=== PATIENT | male | born 1995 | race African-American/Black ===

== ENCOUNTER 2016-06-26 21:15 | Emergency (ER) | payer SELFPAY ==
[~2016-06-26] VITALS: Ht 188 cm; Wt 65.0 kg
[~2016-06-26 21:15] MED LIST: AMOX875T PO
[2016-06-26 21:20] VITALS: BP 163/103; PULSE 118; RESP 22; TEMP 99.1; O2SAT 100
[2016-06-26] MEDS ORDERED: SODIUM CHLOR 0.9% 1000 ML INJ 1,000 ML IV ONE (21:24)
[2016-06-26] MEDS ORDERED: SODIUM CHLORIDE 0.9% FLUSH 10 ML FLUSH IVF PRN (21:30)
[2016-06-26 21:32] VITALS: O2SAT 100
--- NOTE | 2016-06-26 21:32 | PD ---
HPI Chief Complaint: Abdominal Pain Time Seen by Provider: 21:24 Travel History International Travel<30 days: No Contact w/Intl Traveler<30days: No Traveled to known affect area: No History of Present Illness HPI This is a 21-year-old male with a previous history of seizure disorder, who presents via EMS after he reportedly smoked "flock". The patient reports that he smoked it prior to arrival. Patient also reports diffuse abdominal pain. Patient states the pain has been there for one week. He denies any fevers, chills. He denies any nausea vomiting diarrhea. The patient is a very poor historian and is difficult to get a clear history from him. PFSH Past Medical History Asthma: Yes Diminished Hearing: No Respiratory: Yes Immunizations Current: Yes Seizures: Yes Tetanus Vaccination: Unknown Influenza Vaccination: No Past Surgical History Surgical History: No Previous Surgery Social History Alcohol Use: Yes (socially) Tobacco Use: Yes (2 PPD) Substance Use: Yes (MULTIPLE ED VISITS FOR SUBSTANCE ABUSE RELATED ISSUES admits [place]) Allergies-Medications (Allergen,Severity, Reaction): Coded Allergies: No Known Allergies (Verified , 02/10/16) Reported Meds & Prescriptions Reported Meds & Active Scripts Active No Active Prescriptions or Reported Medications Review of Systems ROS Limitations: Uncooperative Except as stated in HPI: all other systems reviewed are Neg Eyes: No: Diploplia, Blurred Vision HENT: No: Headaches, Lightheadedness Cardiovascular: No: Chest Pain or Discomfort, Palpitations Respiratory: No: Cough, Shortness of Breath Gastrointestinal: Positive: Abdominal Pain ("all over"), No: Nausea, Vomiting , Hematemesis, Hematochezia Genitourinary: No: Incontinence Musculoskeletal: No: Weakness, Pain Skin: No Rash, No Lesions Neurologic: Positive: Other (poor historian.), No: Weakness, Headache Physical Exam Narrative GENERAL: Well-nourished, well-developed patient, in no acute respiratory distress. SKIN: Focused skin assessment warm/dry. HEAD: Normocephalic/atraumatic. EYES: No scleral icterus. No injection or drainage. ENT: Dry mucous membranes. No lesions appreciated. NECK: Supple, trachea midline. CARDIOVASCULAR: Heart rate in the low 100s. 109 at the time my examination. No murmurs, gallops, rubs. RESPIRATORY: Breath sounds equal bilaterally. No accessory muscle use. GASTROINTESTINAL: Abdomen soft, non-tender, nondistended. Patient reports abdominal pain however none elicited on exam. MUSCULOSKELETAL: No cyanosis, or edema. NEUROLOGICAL: Awake and uncooperative. Cranial nerves II through XII intact. Motor and sensory grossly within normal limits. Five out of 5 muscle strength in all muscle groups. Normal speech. Data Data Last Documented VS Vital Signs Date Time Temp Pulse Resp B/P Pulse Ox O2 Delivery O2 Flow Rate FiO2 06/26/16 23:00 97 18 145/75 100 Room Air 06/26/16 21:20 99.1 Orders Electrocardiogram (06/26/16 21:24) Complete Blood Count With Diff (06/26/16 21:24) Comprehensive Metabolic Panel (06/26/16 21:24) Chest, Single Ap (06/26/16 21:24) Iv Access Insert/Monitor (06/26/16 21:24) Ecg Monitoring (06/26/16 21:24) Oximetry (06/26/16 21:24) Sodium Chloride 0.9% Flush (Ns Flush) (06/26/16 21:30) Sodium Chlor 0.9% 1000 Ml Inj (Ns 1000 M (06/26/16 21:24) Drug Screen, Random Urine (06/26/16 21:24) Alcohol (Ethanol) (06/26/16 21:24) Lipase (06/26/16 21:24) Potassium Chloride Powder (Kcl Powder) (06/26/16 23:45) Labs Laboratory Tests Test 06/26/16 21:25 White Blood Count 8.8 TH/MM3 Red Blood Count 4.19 MIL/MM3 Hemoglobin 12.2 GM/DL Hematocrit 37.2 % Mean Corpuscular Volume 88.7 FL Mean Corpuscular Hemoglobin 29.0 PG Mean Corpuscular Hemoglobin 32.7 % Concent Red Cell Distribution Width 14.1 % Platelet Count 170 TH/MM3 Mean Platelet Volume 9.9 FL Neutrophils (%) (Auto) 52.7 % Lymphocytes (%) (Auto) 29.8 % Monocytes (%) (Auto) 13.9 % Eosinophils (%) (Auto) 2.8 % Basophils (%) (Auto) 0.8 % Neutrophils # (Auto) 4.6 TH/MM3 Lymphocytes # (Auto) 2.6 TH/MM3 Monocytes # (Auto) 1.2 TH/MM3 Eosinophils # (Auto) 0.2 TH/MM3 Basophils # (Auto) 0.1 TH/MM3 CBC Comment DIFF FINAL Differential Comment Sodium Level 139 MEQ/L Potassium Level 3.1 MEQ/L Chloride Level 104 MEQ/L Carbon Dioxide Level 23.5 MEQ/L Anion Gap 12 MEQ/L Blood Urea Nitrogen 8 MG/DL Creatinine 1.13 MG/DL Estimat Glomerular Filtration 98 ML/MIN Rate Random Glucose 100 MG/DL Calcium Level 8.9 MG/DL Total Bilirubin 0.9 MG/DL Aspartate Amino Transf 13 U/L (AST/SGOT) Alanine Aminotransferase 8 U/L (ALT/SGPT) Alkaline Phosphatase 70 U/L Total Protein 7.5 GM/DL Albumin 3.9 GM/DL Lipase 52 U/L Ethyl Alcohol Level LESS THAN 3 MG/DL MDM Medical Decision Making Medical Screen Exam Complete: Yes Emergency Medical Condition: Yes Differential Diagnosis Polysubstance abuse Pancreatitis versus gastroenteritis versus peptic ulcer disease Narrative Course 21-year-old male who has a history of polysubstance abuse, presents today via EMS after he ingested "lock". The patient apparently was also complaining of epigastric pain. The patient has a soft nontender toxic abdominal exam. Potassium level was 3.1. He's been given 20 mEq of by mouth potassium replacement. The patient's not been able to produce urine. He is refusing catheterization at this point. He has been given 1 L of IVD fluid. He's been observed and is resting comfortably. We will continue to observe him until he is appropriately sober and awake. Diagnosis Primary Impression: Substance use disorder Additional Impressions: Chronic abdominal pain mild hypokalemia Additional Instructions: Stop using drugs Scripts No Active Prescriptions or Reported Meds Disposition: 01 DISCHARGE HOME Condition: Stable Ramón Rush MD June 26, 2016 21:32
[2016-06-26 21:40] LABS: AUTOMATED NEUTROPHIL # 4.6 TH/MM3 (1.8-7.7); BASOPHIL # 0.1 TH/MM3 (0-0.2); BASOPHIL % 0.8 % (0.0-2.0); EOSINOPHIL # 0.2 TH/MM3 (0-0.4); EOSINOPHIL % 2.8 % (0.0-4.0); HEMATOCRIT 37.2 % (39.0-51.0); HEMO FLAGS DIFF FINAL; LYMPH % 29.8 % (9.0-44.0); LYMPHOCYTE # 2.6 TH/MM3 (1.0-4.8); MEAN CELL VOLUME 88.7 FL (80.0-100.0); MEAN CORPUSCULAR HGB CONC 32.7 % (32.0-36.0); MONO % 13.9 % (0.0-8.0); NEUT % 52.7 % (16.0-70.0); PLATELET COUNT 170 TH/MM3 (150-450); RED BLOOD COUNT 4.19 MIL/MM3 (4.50-5.90); RED CELL DISTRIBUTION WIDTH 14.1 % (11.6-17.2); WHITE BLOOD COUNT 8.8 TH/MM3 (4.0-11.0)
[2016-06-26 21:57] LABS: ANION GAP 12 MEQ/L (5-15); AST (GOT) 13 U/L (15-37); BICARBONATE 23.5 MEQ/L (21.0-32.0); BLOOD UREA NITROGEN 8 MG/DL (7-18); CHLORIDE 104 MEQ/L (98-107); GLOMERULAR FILTRATION RATE 98 ML/MIN (>89); POTASSIUM 3.1 MEQ/L (3.5-5.1); SODIUM (NA) 139 MEQ/L (136-145)
[2016-06-26 22:00] VITALS: BP 161/99; PULSE 110; RESP 16; O2SAT 100
[2016-06-26 22:00] LABS: ALKALINE PHOSPHATASE 70 U/L (45-117); ALT (GPT) 8 U/L (12-78); TOTAL BILIRUBIN ADULT 0.9 MG/DL (0.2-1.0)
--- NOTE | 2016-06-26 22:20 | RADRPT ---
EXAM DATE/TIME: 06/26/2016 21:49 [facility] COMPARISON: CHEST SINGLE AP, February 10, 2016, 5:20. INDICATIONS : Chest pain. MEDICAL HISTORY : None. SURGICAL HISTORY : None. ENCOUNTER: Initial ACUITY: 1 day PAIN SCORE: 10/10 LOCATION: Bilateral chest FINDINGS: A single view of the chest demonstrates the lungs to be symmetrically aerated without evidence of mas s, infiltrate or effusion. The cardiomediastinal contours are unremarkable. Osseous structures are intact. CONCLUSION: No acute disease. Travis Huitron MD on June 26, 2016 at 22:16 Board Certified Radiologist. This report was verified electronically.
[2016-06-26 23:00] VITALS: BP 145/75; PULSE 97; RESP 18; O2SAT 100
[2016-06-26] MEDS ORDERED: POTASSIUM CHLORIDE 20 MEQ PWD PACKET PO ONE (23:45)
[2016-06-27 01:00] VITALS: BP 127/73; PULSE 79; RESP 16; O2SAT 100
[2016-06-27 03:00] VITALS: BP 135/98; PULSE 78; RESP 16; O2SAT 100
[2016-06-27 06:00] VITALS: BP 133/96; PULSE 73; RESP 16; O2SAT 100
--- NOTE | 2016-06-27 07:38 | EKG ---
Date Performed: 06/26/2016 Time Performed: 21:33:05 PTAGE: 21 years EKG: SINUS TACHYCARDIA NONSPECIFIC T-WAVE ABNORMALITY ABNORMAL RHYTHM ECG COMPARED TO PRIOR ELEC TROCARDIOGRAM, Rate has increased. PREVIOUS TRACING : 08/11/2015 13.49 DOCTOR: Jeff Lockwood Interpretating Date/Time 06/27/2016 07:37:47
== END 2016-06-27 10:24 | disposition home or self-care (01) ==
LOC: NEPE 21:15
DX: R10.9 Unspecified abdominal pain (principal); G89.29 Other chronic pain; E87.6 Hypokalemia; F15.90 Other stimulant use, unspecified, uncomplicated; R94.31 Abnormal electrocardiogram [ECG] [EKG]; G40.909 Epilepsy, unspecified, not intractable, without status epilepticus; F17.210 Nicotine dependence, cigarettes, uncomplicated; F12.90 Cannabis use, unspecified, uncomplicated
CPT/HCPCS: 71010; 80053; 80307; 83690; 85025; 93005; 99284; J7030

== ENCOUNTER 2016-08-03 01:12 | Emergency (ER) | payer SELFPAY ==
[~2016-08-03] VITALS: Ht 188 cm; Wt 70.0 kg
[2016-08-03 01:30] VITALS: BP 139/105; PULSE 80; RESP 18; TEMP 98.6; O2SAT 100
[2016-08-03 02:09] LABS: AUTOMATED NEUTROPHIL # 5.3 TH/MM3 (1.8-7.7); BASOPHIL % 0.3 % (0.0-2.0); EOSINOPHIL # 0.1 TH/MM3 (0-0.4); EOSINOPHIL % 1.1 % (0.0-4.0); HEMATOCRIT 40.1 % (39.0-51.0); HEMO FLAGS DIFF FINAL; LYMPH % 25.9 % (9.0-44.0); LYMPHOCYTE # 2.2 TH/MM3 (1.0-4.8); MEAN CELL VOLUME 88.3 FL (80.0-100.0); MEAN CORPUSCULAR HEMOGLOBIN 29.9 PG (27.0-34.0); MEAN CORPUSCULAR HGB CONC 33.8 % (32.0-36.0); MONO % 9.7 % (0.0-8.0); PLATELET COUNT 187 TH/MM3 (150-450); RED BLOOD COUNT 4.54 MIL/MM3 (4.50-5.90); WHITE BLOOD COUNT 8.4 TH/MM3 (4.0-11.0)
[2016-08-03 02:35] LABS: ALKALINE PHOSPHATASE 72 U/L (45-117); TOTAL BILIRUBIN ADULT 0.4 MG/DL (0.2-1.0)
[2016-08-03 02:38] LABS: ALT (GPT) 11 U/L (12-78); ANION GAP 7 MEQ/L (5-15); AST (GOT) 14 U/L (15-37); BICARBONATE 23.8 MEQ/L (21.0-32.0); BLOOD UREA NITROGEN 11 MG/DL (7-18); CHLORIDE 109 MEQ/L (98-107); GLOMERULAR FILTRATION RATE 135 ML/MIN (>89); SODIUM (NA) 140 MEQ/L (136-145)
--- NOTE | 2016-08-03 03:40 | PD ---
HPI Chief Complaint: Abdominal Pain Time Seen by Provider: 01:48 Travel History International Travel<30 days: No Contact w/Intl Traveler<30days: No Traveled to known affect area: No History of Present Illness HPI 21-year-old male presents to the emergency department for complaint of one day of nausea and one hour or so of worsening abdominal pain. Pain is diffuse. Patient notes subjective fever; denies chills. Patient reports a few episodes of vomiting but denies hematemesis or coffee-ground emesis. Patient has had for 5 episodes of diarrhea. Patient denies any injury. Patient states he's had this pain before. Patient does not report any dietary indiscretion, well water ingestion, or foreign travel. No report of others with known similar symptoms. Patient rates his pain as 10 over 10 in intensity. Patient denies any dysuria frequency urgency hematuria or flank pain. Patient denies any melena hematochezia. Patient's had no anorexia. PFSH Past Medical History Narrative Medical Asthma chronic pain syndrome substance use; nursing notes reviewed Asthma: Yes Diminished Hearing: No Respiratory: Yes Immunizations Current: Yes Seizures: Yes Tetanus Vaccination: Unknown Influenza Vaccination: No Past Surgical History Surgical History: No Previous Surgery Social History Alcohol Use: Yes (socially) Tobacco Use: Yes (2 PPD) Substance Use: Yes (MULTIPLE ED VISITS FOR SUBSTANCE ABUSE RELATED ISSUES admits [place]) Allergies-Medications (Allergen,Severity, Reaction): Coded Allergies: No Known Allergies (Verified , 02/10/16) Reported Meds & Prescriptions Reported Meds & Active Scripts Active No Active Prescriptions or Reported Medications Review of Systems Except as stated in HPI: all other systems reviewed are Neg General / Constitutional: Positive: Fever (subjective), No: Chills HENT: No: Congestion Cardiovascular: No: Chest Pain or Discomfort Respiratory: No: Shortness of Breath Gastrointestinal: Positive: Nausea, Vomiting, Diarrhea, Abdominal Pain, No: Hematemesis, Hematochezia, Loss of Appetite Genitourinary: No: Urgency, Dysuria Musculoskeletal: No: Myalgias, Arthralgias Skin: No Rash Neurologic: No: Weakness Psychiatric: No: Anxiety Hematologic/Lymphatic: No: Easy Bruising Physical Exam Narrative GENERAL: Well-developed well-nourished male in no acute distress no respiratory distress SKIN: Warm and dry. HEAD: Normocephalic. EYES: No scleral icterus. No injection or drainage. NECK: Supple, trachea midline. No JVD or lymphadenopathy. CARDIOVASCULAR: Regular rate and rhythm without murmurs, gallops, or rubs. RESPIRATORY: Breath sounds equal bilaterally. No accessory muscle use. GASTROINTESTINAL: Abdomen soft, non-tender, nondistended. No guarding no rebound no localized area of tenderness. Nondistended. Positive bowel sounds. MUSCULOSKELETAL: No cyanosis, or edema. BACK: Nontender without obvious deformity. No CVA tenderness. Data Data Last Documented VS Vital Signs Date Time Temp Pulse Resp B/P Pulse Ox O2 Delivery O2 Flow Rate FiO2 08/03/16 01:30 98.6 80 18 139/105 100 Orders Complete Blood Count With Diff (08/03/16 01:48) Comprehensive Metabolic Panel (08/03/16 01:48) Urinalysis - C+S If Indicated (08/03/16 01:48) Sodium Chlor 0.9% 1000 Ml Inj (Ns 1000 M (08/03/16 03:45) Lipase (08/03/16 03:42) Ondansetron Inj (Zofran Inj) (08/03/16 04:00) Ct Abd/Pel W Iv Contrast(Rout) (08/03/16 ) Ondansetron Inj (Zofran Inj) (08/03/16 03:58) Urine Culture (08/03/16 03:50) Gc And Chlamydia Pcr (08/03/16 04:17) Iohexol 350 Inj (Omnipaque 350 Inj) (08/03/16 04:25) Morphine Inj (Morphine Inj) (08/03/16 05:00) Ondansetron Inj (Zofran Inj) (08/03/16 05:00) Labs Laboratory Tests Test 08/03/16 08/03/16 08/03/16 01:56 02:11 03:50 White Blood Count 8.4 TH/MM3 Red Blood Count 4.54 MIL/MM3 Hemoglobin 13.6 GM/DL Hematocrit 40.1 % Mean Corpuscular Volume 88.3 FL Mean Corpuscular Hemoglobin 29.9 PG Mean Corpuscular Hemoglobin 33.8 % Concent Red Cell Distribution Width 14.0 % Platelet Count 187 TH/MM3 Mean Platelet Volume 11.3 FL Neutrophils (%) (Auto) 63.0 % Lymphocytes (%) (Auto) 25.9 % Monocytes (%) (Auto) 9.7 % Eosinophils (%) (Auto) 1.1 % Basophils (%) (Auto) 0.3 % Neutrophils # (Auto) 5.3 TH/MM3 Lymphocytes # (Auto) 2.2 TH/MM3 Monocytes # (Auto) 0.8 TH/MM3 Eosinophils # (Auto) 0.1 TH/MM3 Basophils # (Auto) 0.0 TH/MM3 CBC Comment DIFF FINAL Differential Comment Sodium Level 140 MEQ/L Potassium Level 4.0 MEQ/L Chloride Level 109 MEQ/L Carbon Dioxide Level 23.8 MEQ/L Anion Gap 7 MEQ/L Blood Urea Nitrogen 11 MG/DL Creatinine 0.86 MG/DL Estimat Glomerular Filtration 135 ML/MIN Rate Random Glucose 90 MG/DL Calcium Level 9.0 MG/DL Total Bilirubin 0.4 MG/DL Aspartate Amino Transf 14 U/L (AST/SGOT) Alanine Aminotransferase 11 U/L (ALT/SGPT) Alkaline Phosphatase 72 U/L Total Protein 8.0 GM/DL Albumin 4.1 GM/DL Lipase 102 U/L Urine Color YELLOW Urine Turbidity CLEAR Urine pH 5.5 Urine Specific [place] 1.025 Urine Protein NEG mg/dL Urine Glucose (UA) NEG mg/dL Urine Ketones NEG mg/dL Urine Occult Blood SMALL Urine Nitrite NEG Urine Bilirubin NEG Urine Urobilinogen LESS THAN 2.0 MG/DL Urine Leukocyte Esterase MOD Urine RBC 3 /hpf Urine WBC 16 /hpf Urine Squamous Epithelial <1 /hpf Cells Urine Bacteria OCC /hpf Urine Mucus FEW /lpf Microscopic Urinalysis Comment CULTURE INDICATED MDM Medical Decision Making Medical Screen Exam Complete: Yes Emergency Medical Condition: Yes Medical Record Reviewed: Yes Interpretation(s) CBC & BMP Diagram 08/03/16 01:56 Vital Signs Date Time Temp Pulse Resp B/P Pulse Ox O2 Delivery O2 Flow Rate FiO2 08/03/16 01:30 98.6 80 18 139/105 100 lipase: 102, not elevated CT abd/pel: CONCLUSION: 1. Nonspecific appearance of the appendix. It is fluid filled and upper limits of normal in diameter. No periappendiceal inflammatory changes are seen. 2. Abdomen and pelvis CT otherwise within normal limits. Don Dennison MD on August 03, 2016 at 4:57 Board Certified Radiologist. This report was verified electronically. Differential Diagnosis Abdominal pain, viral syndrome, gastroenteritis, gastritis, pancreatitis, biliary colic, colitis, appendicitis; patient has a soft nontender abdomen to direct palpation without guarding or rebound vital signs are in normal range without tachycardia patient is afebrile and no anorexia. Reportedly patient has had vomiting and diarrhea. We'll obtain basic labs and administer bolus of IV fluids. Narrative Course IV access obtained specimens collected and sent for resulting Patient sleeping awakened to be reexamined unable to produce urine Patient given liter of normal saline CBC is automated differential values are normal range and complete metabolic panel shows no acute abnormality or elevations specifically LFTs are not elevated. Lipase pending complaining of lower abdominal pain At 5:13 AM patient continues complaining of worsening abdominal pain appears to be primarily in the lower abdomen this time slightly midline but also noted bilaterally. CT imaging per reading radiologist reported nonspecific appearance of appendix with no periappendiceal inflammatory changes but appendix being fluid-filled and upper limit of normal in size. Patient at this time nausea has settled down no further vomiting after Zofran patient had been ordered morphine sulfate 2 mg to be administered however has not complained of pain again therefore not administered on re-exam patient continues complaining of lower abdominal pain and rates pain as severe although pain on exam minimal to palpation. Vital signs are normal range. Total white cell count is normal and patient is afebrile. Suspect CT as exam most c/w gastroenteritis. Patient' s case discussed with on-call general surgery. Patient will be discharged with prescription for Phenergan for nausea vomiting Cipro for mild UTI versus urethritis findings on urinalysis. No report of penile discharge. Patient is stable for outpatient management on clear liquid diet to advance as tolerated. Patient is returned the emergency department for any increasing or worsening pain. Physician Communication Physician Communication call placed to gen surgery Diagnosis Primary Impression: Abdominal pain Qualified Code: R10.30 - Lower abdominal pain Additional Impressions: Acute gastroenteritis UTI (urinary tract infection) Qualified Code: N39.0 - Urinary tract infection without hematuria, site unspecified Referrals: [facility] as needed Primary Care Physician call for appointment Patient Instructions: General Instructions Additional Instructions: Follow clear liquid diet for next 12-24 hours advance diet as tolerated to bland /Chaim diet then regular diet avoiding fried and fatty foods Monitor temperature every 4 hours with thermometer take acetaminophen/Tylenol as often as every 4 hours as needed for fever 100.4F or greater May use ibuprofen/Advil/Motrin 600 mg as often as every 6 hours for pain or for fever 100.4 days Fahrenheit or greater Take medication as prescribed as needed for nausea and/or vomiting Complete course of antibiotic as prescribed Return to the emergency for any concerns or change in condition Med/Other Pt SpecificInfo: Prescription(s) given Scripts Ciprofloxacin (Cipro)500 Mg [id number] Mg PO BID 3 Days Ref 0 Prov:Cait Murillo MD 08/03/16 Promethazine (Phenergan)25 Mg [id number] Mg PO Q6H PRN (NAUSEA OR VOMITING) #10 TAB Ref 0 Prov:Cait Murillo MD 08/03/16 Promethazine Supp (Phenergan Supp)25 Mg Supp25 Mg RECTAL Q6H PRN (NAUSEA OR VOMITING) #7 SUPP Ref 0 Prov:Cait Murillo MD 08/03/16 Disposition: 01 DISCHARGE HOME Condition: Stable Cait Murillo MD Aug 03, 2016 03:40
[2016-08-03] MEDS ORDERED: SODIUM CHLOR 0.9% 1000 ML INJ 1,000 ML IV ONE (03:45)
[2016-08-03] MEDS ORDERED: ONDANSETRON HCL 4 MG/2 ML VIAL ONE (03:58)
[2016-08-03] MEDS ORDERED: ONDANSETRON HCL 4 MG/2 ML VIAL IV PUSH ONE ×2 (04:00→05:00)
[2016-08-03 04:14] LABS: BACTERIA, URINE OCC /hpf; BLOOD, URINE SMALL (NEG); COMMENT (UR) CULTURE INDICATED; CULTURE IF INDICATED CULTURE INDICATED; GLUCOSE,URINE NEG (NEG); KETONE, URINE NEG (NEG); MUCUS URINE FEW /lpf (OCC); NITRITE,URINE NEG (NEG); PH, URINE 5.5 (5.0-8.5); SQUAMOUS EPITHELIAL CELL URINE <1 /hpf (0-5); URINE COLOR YELLOW (YELLW/STRAW)
[2016-08-03] MEDS ORDERED: IOHEXOL 350 MG/ML 10 ML VIAL (for RAD DIAG) IV ONE (04:25)
[2016-08-03] MEDS ORDERED: MORPHINE SULFATE 4 MG/ML INJ IV PUSH ONE (05:00)
--- NOTE | 2016-08-03 05:08 | RADRPT ---
EXAM DATE/TIME: 08/03/2016 04:22 [facility] COMPARISON: CT ABDOMEN & PELVIS W CONTRAST, December 28, 2015, 5:46. INDICATIONS : Abdominal pain. IV CONTRAST: 96 cc Omnipaque 350 (iohexol) IV ORAL CONTRAST: No oral contrast ingested. RADIATION DOSE: 6.03 CTDIvol (mGy) MEDICAL HISTORY : Seizures. Asthma, substance abuse SURGICAL HISTORY : None. ENCOUNTER: Initial ACUITY: 1 day PAIN SCALE: 7/10 LOCATION: abdomen TECHNIQUE: Volumetric scanning of the abdomen and pelvis was performed. Using automated exposure control and ad justment of the mA and/or kV according to patient size, radiation dose was kept as low as reasonably achievable to obtain optimal diagnostic quality images. FINDINGS: LOWER LUNGS: The visualized lower lungs are clear. LIVER: Homogeneous density without lesion. There is no dilation of the biliary tree. No calcified gallston es. SPLEEN: Normal size without lesion. PANCREAS: Within normal limits. KIDNEYS: Normal in size and shape. There is no mass, stone or hydronephrosis. ADRENAL GLANDS: Within normal limits. VASCULAR: There is no aortic aneurysm. BOWEL/MESENTERY: Likely appendix is identified medial to the cecum. It is fluid filled and measures 6-7 mm in diameter . No adjacent inflammatory changes seen. No evidence of bowel dilatation. ABDOMINAL WALL: Within normal limits. RETROPERITONEUM: There is no lymphadenopathy. BLADDER: No wall thickening or mass. REPRODUCTIVE: Within normal limits. INGUINAL: There is no lymphadenopathy or hernia. MUSCULOSKELETAL: Within normal limits for patient age. CONCLUSION: 1. Nonspecific appearance of the appendix. It is fluid filled and upper limits of normal in diameter. No periappendiceal inflammatory changes are seen. 2. Abdomen and pelvis CT otherwise within normal limits. Don Dennison MD on August 03, 2016 at 4:57 Board Certified Radiologist. This report was verified electronically.
[2016-08-03] MEDS ORDERED: PROM1SUP7 RECTAL (06:02)
[2016-08-03] MEDS ORDERED: PROM25TA10 PO (06:02)
[2016-08-03] MEDS ORDERED: CIPR-9 PO (06:02)
[2016-08-04 01:50] LABS: CHLAMYDIA PCR NOT DETECTED (NOT DETECT); NEISSERIA PCR NOT DETECTED (NOT DETECT)
== END 2016-08-03 06:16 | disposition home or self-care (01) ==
LOC: NEPC 01:12
DX: K52.9 Noninfective gastroenteritis and colitis, unspecified (principal); N39.0 Urinary tract infection, site not specified; J45.909 Unspecified asthma, uncomplicated; R56.9 Unspecified convulsions; F17.200 Nicotine dependence, unspecified, uncomplicated
CPT/HCPCS: 74177; 80053; 81001; 83690; 85025; 87086; 87491; 87591; 96361; 96374; 96375; 96376; 99285; J2270; J2405; J7030; Q9967

== ENCOUNTER 2016-09-04 16:33 | Emergency (ER) | payer SELFPAY ==
[~2016-09-04] VITALS: Ht 188 cm; Wt 70.0 kg
[2016-09-04 16:33] VITALS: BP 152/82; PULSE 66; RESP 16; TEMP 100; O2SAT 98
[~2016-09-04 16:33] MED LIST changes: -AMOX875T PO; +CIPR-9 PO; +PROM1SUP7 RECTAL; +PROM25TA10 PO
[2016-09-04 17:00] VITALS: BP 142/80; PULSE 112; RESP 16; O2SAT 100
[2016-09-04] MEDS ORDERED: SODIUM CHLOR 0.9% 1000 ML INJ 1,000 ML IV ONE (17:07)
--- NOTE | 2016-09-04 17:07 | PD ---
HPI Chief Complaint: Altered Mental Status Time Seen by Provider: 17:05 Travel History International Travel<30 days: No Contact w/Intl Traveler<30days: No History of Present Illness HPI 21-year-old male presents to the ED via EMS for evaluation after being observed to smoke Flakka by family members. Per EMS the patient's mother observed the patient running up and down the street and called EMS before going to work. Review of the patient's record reveals several visits to the ED with similar symptoms. On presentation the patient is alert but making nonsensical noises and speaking in symptoms fragments. He does not respond appropriately to questioning. He is unable to provide any meaningful history. PFSH Past Medical History Asthma: Yes Diminished Hearing: No Respiratory: Yes Immunizations Current: Yes Seizures: Yes Social History Alcohol Use: Yes (socially) Tobacco Use: Yes (2 PPD) Substance Use: Yes (MULTIPLE ED VISITS FOR SUBSTANCE ABUSE RELATED ISSUES admits [place]) Allergies-Medications (Allergen,Severity, Reaction): Coded Allergies: No Known Allergies (Verified , 02/10/16) Reported Meds & Prescriptions Reported Meds & Active Scripts Active Cipro (Ciprofloxacin HCl) 500 Mg Tab 500 Mg PO BID 3 Days Phenergan (Promethazine HCl) 25 Mg Tablet 25 Mg PO Q6H PRN Phenergan Supp (Promethazine HCl) 25 Mg Supp 25 Mg RECTAL Q6H PRN Review of Systems Except as stated in HPI: all other systems reviewed are Neg Physical Exam Exam Limitations: Clinical Condition Narrative GENERAL: Well-nourished, well-developed thin black male in no acute distress. SKIN: Focused skin assessment warm/dry. HEAD: Normocephalic. EYES: No scleral icterus. No injection or drainage. NECK: Supple, trachea midline. No JVD or lymphadenopathy. CARDIOVASCULAR: Regular rate and rhythm without murmurs, gallops, or rubs. RESPIRATORY: Breath sounds clear and equal bilaterally. No accessory muscle use. GASTROINTESTINAL: Abdomen soft, non-tender, nondistended. Active bowel sounds. MUSCULOSKELETAL: No cyanosis, or edema. Patient's moving the extremities spontaneously. NEUROLOGICAL: Awake and alert. Five out of 5 muscle strength in all muscle groups. No slurred speech. No facial droop. Exam limited by patient's condition. BACK: Nontender without obvious deformity. No CVA tenderness. Data Data Last Documented VS Vital Signs Date Time Temp Pulse Resp B/P Pulse Ox O2 Delivery O2 Flow Rate FiO2 09/04/16 19:11 97.8 82 18 153/77 100 Room Air Orders Lorazepam Inj (Ativan Inj) (09/04/16 17:15) Electrocardiogram (09/04/16 17:07) Complete Blood Count With Diff (09/04/16 17:07) Comprehensive Metabolic Panel (09/04/16 17:07) Prothrombin Time / Inr (Pt) (09/04/16 17:07) Act Partial Throm Time (Ptt) (09/04/16 17:07) Urinalysis - C+S If Indicated (09/04/16 17:07) Chest, Single Ap (09/04/16 17:07) Iv Access Insert/Monitor (09/04/16 17:07) Ecg Monitoring (09/04/16 17:07) Oximetry (09/04/16 17:07) Sodium Chloride 0.9% Flush (Ns Flush) (09/04/16 17:15) Sodium Chlor 0.9% 1000 Ml Inj (Ns 1000 M (09/04/16 17:07) Drug Screen, Random Urine (09/04/16 17:07) Alcohol (Ethanol) (09/04/16 17:07) Cooling [place] PRN (09/04/16 17:07) Cath For Specimen (09/04/16 17:07) Restraints Violent (09/04/16 17:40) Creatine Kinase (Cpk) (09/04/16 18:27) Haloperidol Inj (Haldol Inj) (09/04/16 21:30) Lorazepam Inj (Ativan Inj) (09/04/16 21:30) CKMB (09/04/16 17:02) CKMB% (09/04/16 17:02) Labs Laboratory Tests Test 09/04/16 09/04/16 17:02 19:15 White Blood Count 12.0 TH/MM3 Red Blood Count 4.41 MIL/MM3 Hemoglobin 13.0 GM/DL Hematocrit 38.9 % Mean Corpuscular Volume 88.0 FL Mean Corpuscular Hemoglobin 29.5 PG Mean Corpuscular Hemoglobin 33.5 % Concent Red Cell Distribution Width 13.7 % Platelet Count 166 TH/MM3 Mean Platelet Volume 10.0 FL Neutrophils (%) (Auto) 61.9 % Lymphocytes (%) (Auto) 20.9 % Monocytes (%) (Auto) 14.7 % Eosinophils (%) (Auto) 2.1 % Basophils (%) (Auto) 0.4 % Neutrophils # (Auto) 7.5 TH/MM3 Lymphocytes # (Auto) 2.5 TH/MM3 Monocytes # (Auto) 1.8 TH/MM3 Eosinophils # (Auto) 0.2 TH/MM3 Basophils # (Auto) 0.0 TH/MM3 CBC Comment DIFF FINAL Differential Comment Prothrombin Time 13.1 SEC Prothromb Time International 1.2 RATIO Ratio Activated Partial 23.6 SEC Thromboplast Time Sodium Level 141 MEQ/L Potassium Level 3.2 MEQ/L Chloride Level 108 MEQ/L Carbon Dioxide Level 19.6 MEQ/L Anion Gap 13 MEQ/L Blood Urea Nitrogen 12 MG/DL Creatinine 1.43 MG/DL Estimat Glomerular Filtration 75 ML/MIN Rate Random Glucose 105 MG/DL Calcium Level 8.9 MG/DL Total Bilirubin 1.2 MG/DL Aspartate Amino Transf 15 U/L (AST/SGOT) Alanine Aminotransferase 9 U/L (ALT/SGPT) Alkaline Phosphatase 60 U/L Total Creatine Kinase 450 U/L Total Protein 7.7 GM/DL Albumin 3.9 GM/DL Ethyl Alcohol Level LESS THAN 3 MG/DL Urine Color YELLOW Urine Turbidity CLEAR Urine pH 7.5 Urine Specific [place] 1.023 Urine Protein 30 mg/dL Urine Glucose (UA) NEG mg/dL Urine Ketones 40 mg/dL Urine Occult Blood NEG Urine Nitrite NEG Urine Bilirubin NEG Urine Urobilinogen 2.0 MG/DL Urine Leukocyte Esterase NEG Urine RBC 4 /hpf Urine WBC 2 /hpf Urine Squamous Epithelial <1 /hpf Cells Urine Bacteria RARE /hpf Urine Hyaline Casts 8 /lpf Urine Mucus FEW /lpf Microscopic Urinalysis Comment CULT NOT INDICATED Urine Opiates Screen NEG Urine Barbiturates Screen NEG Urine Amphetamines Screen NEG Urine Benzodiazepines Screen NEG Urine Cocaine Screen NEG Urine Cannabinoids Screen POS MDM Medical Decision Making Medical Screen Exam Complete: Yes Emergency Medical Condition: Yes Interpretation(s) EKG rate 127, sinus tachycardia. FL interval 154, QRS 83, QTC 376. Nonspecific T-wave abnormality. Reviewed by Dr. Kebede. Differential Diagnosis Acute substance intoxication versus substance induced mood disorder versus versus electrolyte abnormality versus rhabdomyolysis versus other Narrative Course 21-year-old male presents to the ED via EMS for evaluation after being observed to smoke flakka by family members. Per EMS the patient's mother observed the patient running up and down the street and called EMS before going to work. Review of the patient's record reveals several visits to the ED with similar symptoms. On presentation the patient is alert but making nonsensical noises and speaking in symptoms fragments. He does not respond appropriately to questioning. He is unable to provide any meaningful history. Vitals reviewed. The patient is not following commands, and during a thorough neuro evaluation. However he is alert, speaking in sentences fragments, moving the extremities spontaneously. He was administered Ativan and restraints were applied. He is administered 2 L normal saline IV, 2 mg Ativan IV. Lab work was obtained and reveals a leukocytosis which I suspect is secondary to stress. No hyperkalemia, hypocalcemia. CK 450. CKMB. Tox screen positive for cannabinoids. Recheck of the patient reveals him to be alert, oriented. Some residual confusion. He admits to smoking marijuana today, denies other illicit drug use. He does admit that he has smoked flakka in the past but states he did not today. He denies possibility of his drugs being laced. On second recheck the patient is more agitated, speaking in non-sequiturs, requiring Haldol and Ativan. Given his continued psychosis will order psych screening. Patient is medically cleared. Diagnosis Primary Impression: Acute psychosis Additional Impression: Substance use disorder Radha Rodrigues Sep 04, 2016 17:06
[2016-09-04] MEDS ORDERED: LORazepam 2 MG/ML VIAL IV PUSH ONE ×2 (17:15→21:30)
[2016-09-04] MEDS ORDERED: SODIUM CHLORIDE 0.9% FLUSH 10 ML FLUSH IVF PRN (17:15)
--- NOTE | 2016-09-04 17:39 | RADRPT ---
EXAM DATE/TIME: 09/04/2016 17:19 [facility] COMPARISON: CHEST SINGLE AP, June 26, 2016, 21:49. INDICATIONS : Chest pain. MEDICAL HISTORY : None. SURGICAL HISTORY : None. ENCOUNTER: Initial ACUITY: 1 day PAIN SCORE: 6/10 LOCATION: Bilateral chest FINDINGS: A single view of the chest demonstrates the lungs to be symmetrically aerated without evidence of mas s, infiltrate or effusion. The cardiomediastinal contours are unremarkable. Osseous structures are intact. CONCLUSION: 1. No acute cardiopulmonary disease. Ze Fall MD on September 04, 2016 at 17:37 Board Certified Radiologist. This report was verified electronically.
[2016-09-04 17:44] LABS: AUTOMATED NEUTROPHIL # 7.5 TH/MM3 (1.8-7.7); BASOPHIL % 0.4 % (0.0-2.0); EOSINOPHIL # 0.2 TH/MM3 (0-0.4); EOSINOPHIL % 2.1 % (0.0-4.0); HEMATOCRIT 38.9 % (39.0-51.0); HEMO FLAGS DIFF FINAL; LYMPH % 20.9 % (9.0-44.0); LYMPHOCYTE # 2.5 TH/MM3 (1.0-4.8); MEAN CORPUSCULAR HEMOGLOBIN 29.5 PG (27.0-34.0); MEAN CORPUSCULAR HGB CONC 33.5 % (32.0-36.0); MONO % 14.7 % (0.0-8.0); NEUT % 61.9 % (16.0-70.0); PLATELET COUNT 166 TH/MM3 (150-450); RED BLOOD COUNT 4.41 MIL/MM3 (4.50-5.90); RED CELL DISTRIBUTION WIDTH 13.7 % (11.6-17.2)
[2016-09-04 17:46] LABS: APTT (PATIENT) 23.6 SEC (24.3-30.1); INTERNATIONAL NORMALIZED RATIO 1.2 RATIO; PROTHROMBIN TIME - PATIENT 13.1 SEC (9.8-11.6)
[2016-09-04 17:56] LABS: ALKALINE PHOSPHATASE 60 U/L (45-117); TOTAL BILIRUBIN ADULT 1.2 MG/DL (0.2-1.0)
[2016-09-04 18:00] VITALS: BP 160/91; PULSE 102; RESP 22; O2SAT 100
[2016-09-04 18:11] LABS: ALT (GPT) 9 U/L (12-78); ANION GAP 13 MEQ/L (5-15); AST (GOT) 15 U/L (15-37); BICARBONATE 19.6 MEQ/L (21.0-32.0); BLOOD UREA NITROGEN 12 MG/DL (7-18); CHLORIDE 108 MEQ/L (98-107); GLOMERULAR FILTRATION RATE 75 ML/MIN (>89); POTASSIUM 3.2 MEQ/L (3.5-5.1); SODIUM (NA) 141 MEQ/L (136-145)
[2016-09-04 19:11] VITALS: BP 153/77; PULSE 82; RESP 18; TEMP 97.8; O2SAT 100
[2016-09-04 19:35] LABS: BACTERIA, URINE RARE /hpf; BLOOD, URINE NEG (NEG); COMMENT (UR) CULT NOT INDICATED; CULTURE IF INDICATED CULT NOT INDICATED; GLUCOSE,URINE NEG (NEG); HYALINE CAST, URINE 8 /lpf (RARE); KETONE, URINE 40 mg/dL (NEG); MUCUS URINE FEW /lpf (OCC); NITRITE,URINE NEG (NEG); PH, URINE 7.5 (5.0-8.5); SQUAMOUS EPITHELIAL CELL URINE <1 /hpf (0-5); URINE COLOR YELLOW (YELLW/STRAW)
[2016-09-04 19:40] LABS: AMPHETAMINE, URINE NEG (NEG); BARBITURATES, URINE NEG (NEG); COCAINE, URINE NEG (NEG)
[2016-09-04] MEDS ORDERED: HALOPERIDOL LACTATE 5 MG/ML AMP IM ONE (21:30)
--- NOTE | 2016-09-04 22:01 | PD ---
Data Data Last Documented VS Vital Signs Date Time Temp Pulse Resp B/P Pulse Ox O2 Delivery O2 Flow Rate FiO2 09/04/16 22:13 99 18 136/83 98 Room Air 09/04/16 19:11 97.8 Orders Lorazepam Inj (Ativan Inj) (09/04/16 17:15) Electrocardiogram (09/04/16 17:07) Complete Blood Count With Diff (09/04/16 17:07) Comprehensive Metabolic Panel (09/04/16 17:07) Prothrombin Time / Inr (Pt) (09/04/16 17:07) Act Partial Throm Time (Ptt) (09/04/16 17:07) Urinalysis - C+S If Indicated (09/04/16 17:07) Chest, Single Ap (09/04/16 17:07) Iv Access Insert/Monitor (09/04/16 17:07) Ecg Monitoring (09/04/16 17:07) Oximetry (09/04/16 17:07) Sodium Chloride 0.9% Flush (Ns Flush) (09/04/16 17:15) Sodium Chlor 0.9% 1000 Ml Inj (Ns 1000 M (09/04/16 17:07) Drug Screen, Random Urine (09/04/16 17:07) Alcohol (Ethanol) (09/04/16 17:07) Cooling [place] PRN (09/04/16 17:07) Cath For Specimen (09/04/16 17:07) Restraints Violent (09/04/16 17:40) Creatine Kinase (Cpk) (09/04/16 18:27) Haloperidol Inj (Haldol Inj) (09/04/16 21:30) Lorazepam Inj (Ativan Inj) (09/04/16 21:30) CKMB (09/04/16 17:02) CKMB% (09/04/16 17:02) Psych Screen (09/04/16 22:27) Labs Laboratory Tests Test 09/04/16 09/04/16 17:02 19:15 White Blood Count 12.0 TH/MM3 Red Blood Count 4.41 MIL/MM3 Hemoglobin 13.0 GM/DL Hematocrit 38.9 % Mean Corpuscular Volume 88.0 FL Mean Corpuscular Hemoglobin 29.5 PG Mean Corpuscular Hemoglobin 33.5 % Concent Red Cell Distribution Width 13.7 % Platelet Count 166 TH/MM3 Mean Platelet Volume 10.0 FL Neutrophils (%) (Auto) 61.9 % Lymphocytes (%) (Auto) 20.9 % Monocytes (%) (Auto) 14.7 % Eosinophils (%) (Auto) 2.1 % Basophils (%) (Auto) 0.4 % Neutrophils # (Auto) 7.5 TH/MM3 Lymphocytes # (Auto) 2.5 TH/MM3 Monocytes # (Auto) 1.8 TH/MM3 Eosinophils # (Auto) 0.2 TH/MM3 Basophils # (Auto) 0.0 TH/MM3 CBC Comment DIFF FINAL Differential Comment Prothrombin Time 13.1 SEC Prothromb Time International 1.2 RATIO Ratio Activated Partial 23.6 SEC Thromboplast Time Sodium Level 141 MEQ/L Potassium Level 3.2 MEQ/L Chloride Level 108 MEQ/L Carbon Dioxide Level 19.6 MEQ/L Anion Gap 13 MEQ/L Blood Urea Nitrogen 12 MG/DL Creatinine 1.43 MG/DL Estimat Glomerular Filtration 75 ML/MIN Rate Random Glucose 105 MG/DL Calcium Level 8.9 MG/DL Total Bilirubin 1.2 MG/DL Aspartate Amino Transf 15 U/L (AST/SGOT) Alanine Aminotransferase 9 U/L (ALT/SGPT) Alkaline Phosphatase 60 U/L Total Creatine Kinase 450 U/L Creatine Kinase MB 0.7 NG/ML Creatine Kinase MB % 0.2 % Total Protein 7.7 GM/DL Albumin 3.9 GM/DL Ethyl Alcohol Level LESS THAN 3 MG/DL Urine Color YELLOW Urine Turbidity CLEAR Urine pH 7.5 Urine Specific [place] 1.023 Urine Protein 30 mg/dL Urine Glucose (UA) NEG mg/dL Urine Ketones 40 mg/dL Urine Occult Blood NEG Urine Nitrite NEG Urine Bilirubin NEG Urine Urobilinogen 2.0 MG/DL Urine Leukocyte Esterase NEG Urine RBC 4 /hpf Urine WBC 2 /hpf Urine Squamous Epithelial <1 /hpf Cells Urine Bacteria RARE /hpf Urine Hyaline Casts 8 /lpf Urine Mucus FEW /lpf Microscopic Urinalysis Comment CULT NOT INDICATED Urine Opiates Screen NEG Urine Barbiturates Screen NEG Urine Amphetamines Screen NEG Urine Benzodiazepines Screen NEG Urine Cocaine Screen NEG Urine Cannabinoids Screen POS MDM Medical Record Reviewed: Yes Supervised Visit with LAWRENCE: No Narrative Course CBC & BMP Diagram 09/04/16 17:02 LFTs normal UTOX: + for cannabinoids EtOH < 3 INR 1.2 Please refer to the outgoing provider's note. The patient was reassessed at 9: 30 PM and again at 9:50 PM. Patient was very agitated and has been able to move his stretcher while in 4 point restraints. Ativan and Haldol administered IM. The history of present illness, ROS, physical exam, review of records and medical workup performed for today's visit have reasonably safely excluded organic etiologies for the patient's presenting complaint. We will continue to monitor the patient carefully in the ER until time of evaluation by the psychiatry service. We are available for any additional medical assistance if needed during the patient's ER course. Disposition per discretion of psychiatry is appreciated. Diagnosis Primary Impression: Substance induced mood disorder Additional Impression: Acute psychosis Admitting Information Admitting Physician Requests: Jose Lr MD Sep 04, 2016 22:01
[2016-09-04 22:13] VITALS: BP 136/83; PULSE 99; RESP 18; O2SAT 98
[2016-09-04 22:40] LABS: CKMB 0.7 NG/ML (0.5-3.6)
[2016-09-05 05:21] VITALS: BP 138/79; PULSE 67; RESP 18; O2SAT 100
[2016-09-05 12:33] VITALS: BP 125/73; PULSE 74; RESP 14; O2SAT 98
--- NOTE | 2016-09-05 14:51 | EKG ---
Date Performed: 09/04/2016 Time Performed: 17:06:53 PTAGE: 21 years EKG: SINUS TACHYCARDIA NONSPECIFIC T-WAVE ABNORMALITY ABNORMAL RHYTHM ECG PREVIOUS TRACING : 06/26/2016 21.33 Compared to prior tracing no significant change DOCTOR: Carlos Alberto Paz Interpretating Date/Time 09/05/2016 14:49:26
[2016-09-05 15:00] VITALS: BP 115/55; PULSE 82; RESP 16; O2SAT 97
== END 2016-09-05 15:50 | disposition home or self-care (01) ==
LOC: NEPE 16:33
DX: F23 Brief psychotic disorder (principal); F19.10 Other psychoactive substance abuse, uncomplicated; R45.1 Restlessness and agitation; R41.0 Disorientation, unspecified; D72.829 Elevated white blood cell count, unspecified; R94.31 Abnormal electrocardiogram [ECG] [EKG]; F17.200 Nicotine dependence, unspecified, uncomplicated; Z79.899 Other long term (current) drug therapy; Z87.09 Personal history of other diseases of the respiratory system; Z86.69 Personal history of other diseases of the nervous system and sense organs
CPT/HCPCS: 71010; 80053; 80307; 81001; 82550; 82552; 85025; 85610; 85730; 93005; 96361; 96372; 96374; 96375; 99285; J1630; J2060; J7030

== ENCOUNTER 2016-09-09 22:27 | Emergency (ER) | payer SELFPAY ==
[~2016-09-09] VITALS: Ht 188 cm; Wt 70.0 kg
[2016-09-09 22:29] VITALS: BP 153/93; PULSE 100; RESP 16; TEMP 98.9; O2SAT 99
--- NOTE | 2016-09-09 23:59 | PD ---
HPI Chief Complaint: Dizziness Time Seen by Provider: 23:23 Travel History International Travel<30 days: No Contact w/Intl Traveler<30days: No Traveled to known affect area: No History of Present Illness HPI The patient is a 21 year old male who presents to the [facility] emergency department with a history of reported lightheaded sensation of blurry vision that began prior to arrival. This is a complaint that was reported to the patient's nurse, however upon my arrival to the room the patient reports having chest pain. When asked where the pain as he points to both sides of his chest and his entire abdomen. The patient is speaking so quietly it is difficult to hear any answers that he provides. The patient while speaking to me recurrently falls asleep. The patient also repeatedly sticks his hands and his pants. The patient is unable or refuses to give any additional information regarding the details of his symptoms. I asked patient if he is here for a psychiatric evaluation. Initially the patient said yes, however he then again changed his mind while I was in the room. The patient reports that he is hearing voices. He reports that he has psychiatric problems, however he is unable or unwilling to tell me what his psychiatric diagnosis is. He denies using any drugs today, however from reviewing the records the patient has a history of recurrent polysubstance abuse. [facility] Past Medical History Narrative Medical The patient's past medical history is significant according to the record for asthma, history of seizures, history of polysubstance abuse. Asthma: Yes Diminished Hearing: No Respiratory: Yes Immunizations Current: Yes Seizures: Yes Tetanus Vaccination: Unknown Influenza Vaccination: No Past Surgical History Narrative Surgical The patient's past surgical history is reportedly none. Surgical History: No Previous Surgery Social History Alcohol Use: Yes (socially) Tobacco Use: Yes (2 PPD) Substance Use: Yes (marijuana daily. ) Allergies-Medications (Allergen,Severity, Reaction): Coded Allergies: No Known Allergies (Verified , 02/10/16) Reported Meds & Prescriptions Reported Meds & Active Scripts Active No Active Prescriptions or Reported Medications Review of Systems ROS Limitations: Refused, Poor Historian Eyes: Positive: Blurred Vision HENT: Positive: Lightheadedness Physical Exam Narrative General: The patient is a well-developed well-nourished male in no acute distress. The patient is disheveled appearing on examination. Head and Neck exam: Head is normocephalic atraumatic. Eyes: EOMI, pupils are equal round and reactive to light. Nose: Midline septum with pink mucous membranes Mouth: Dentition unremarkable. Moist mucus membranes. Posterior oropharynx is not erythematous. No tonsillar hypertrophy. Uvula midline. Airway patent. Neck: No palpable lymphadenopathy. No nuchal rigidity. No thyromegaly. Cardiovascular: Regular rate and rhythm without murmurs, gallops, or rubs. Lungs: Clear to auscultation bilaterally. No wheezes, rhonchi, or rales. Abdomen: Soft, without tenderness to palpation in all 4 quadrants of the abdomen. No guarding, rebound, or rigidity. Normal bowel sounds are audible. No tenderness on palpation of McBurney's point. Extremities: No clubbing, cyanosis, or edema. 2+ pulses in all 4 extremities. No calf tenderness on palpation. Back: No costovertebral angle tenderness to palpation. Neurologic Exam: Cranial nerves 2-12 were intact on exam. Strength is 5/5 in all 4 extremities. No sensory deficits noted. The patient is oriented to person, place, and time. Skin Exam: No rash noted. Intact skin that is warm and dry. Data Data Last Documented VS Vital Signs Date Time Temp Pulse Resp B/P Pulse Ox O2 Delivery O2 Flow Rate FiO2 09/10/16 00:42 99 Room Air 09/09/16 22:29 98.9 100 16 153/93 Orders Complete Blood Count With Diff (09/10/16 00:10) Comprehensive Metabolic Panel (09/10/16 00:10) Lipase (09/10/16 00:10) Urinalysis - C+S If Indicated (09/10/16 00:10) Magnesium (Mg) (09/10/16 00:10) Iv Access Insert/Monitor (09/10/16 00:10) Ecg Monitoring (09/10/16 00:10) Oximetry (09/10/16 00:10) Sodium Chlor 0.9% 1000 Ml Inj (Ns 1000 M (09/10/16 00:15) Labs Laboratory Tests Test 09/10/16 00:35 White Blood Count 9.5 TH/MM3 Red Blood Count 4.74 MIL/MM3 Hemoglobin 14.0 GM/DL Hematocrit 42.1 % Mean Corpuscular Volume 88.9 FL Mean Corpuscular Hemoglobin 29.5 PG Mean Corpuscular Hemoglobin 33.2 % Concent Red Cell Distribution Width 13.7 % Platelet Count 190 TH/MM3 Mean Platelet Volume 9.3 FL Neutrophils (%) (Auto) 49.9 % Lymphocytes (%) (Auto) 33.0 % Monocytes (%) (Auto) 12.3 % Eosinophils (%) (Auto) 4.2 % Basophils (%) (Auto) 0.6 % Neutrophils # (Auto) 4.7 TH/MM3 Lymphocytes # (Auto) 3.1 TH/MM3 Monocytes # (Auto) 1.2 TH/MM3 Eosinophils # (Auto) 0.4 TH/MM3 Basophils # (Auto) 0.1 TH/MM3 CBC Comment DIFF FINAL Differential Comment Urine Color YELLOW Urine Turbidity CLEAR Urine pH 7.0 Urine Specific [place] 1.040 Urine Protein 30 mg/dL Urine Glucose (UA) NEG mg/dL Urine Ketones 10 mg/dL Urine Occult Blood NEG Urine Nitrite NEG Urine Bilirubin NEG Urine Urobilinogen 8.0 MG/DL Urine Leukocyte Esterase TRACE Urine RBC 4 /hpf Urine WBC 3 /hpf Urine Mucus MANY /lpf Microscopic Urinalysis Comment CULT NOT INDICATED Sodium Level 140 MEQ/L Potassium Level 3.3 MEQ/L Chloride Level 106 MEQ/L Carbon Dioxide Level 24.8 MEQ/L Anion Gap 9 MEQ/L Blood Urea Nitrogen 10 MG/DL Creatinine 1.01 MG/DL Estimat Glomerular Filtration 112 ML/MIN Rate Random Glucose 91 MG/DL Calcium Level 9.5 MG/DL Magnesium Level 2.3 MG/DL Total Bilirubin 1.1 MG/DL Aspartate Amino Transf 13 U/L (AST/SGOT) Alanine Aminotransferase 11 U/L (ALT/SGPT) Alkaline Phosphatase 67 U/L Total Protein 8.2 GM/DL Albumin 4.3 GM/DL Lipase 61 U/L [facility] Medical Decision Making Medical Screen Exam Complete: Yes Emergency Medical Condition: Yes Medical Record Reviewed: Yes Differential Diagnosis Dehydration, versus electrolyte derangements, versus substance induced mood disorder, versus other psychiatric disorder Narrative Course During the course of the patients emergency department visit, the patients history, examination, and differential diagnosis were reviewed with the patient. The patient had IV access obtained and blood work sent for analysis. The patient was placed on a drywall finishing foreman with oximetry and blood pressure monitoring. The patient was initially provided normal saline 1 L IV fluid bolus. The patients laboratory studies were reviewed and remarkable for a white count of 9.5, hemoglobin 14, platelets 190 with 12.3 monocytes, CMP is remarkable for a potassium of 3.3 which was supplemented orally, total bilirubin 1.1, AST 13, ALT 11, lipase 61, urinalysis shows a specific gravity of 1.040 consistent with dehydration, protein 30, ketones 10, urobilinogen 8, leukocyte esterase trace, RBCs 4, culture not indicated. The patient was given a second liter of normal saline IV fluids along with oral rehydration with Gatorade. The patient is resting comfortably and feels better, is alert and in no distress. The patients results and examination findings were discussed with the patient. The repeat examination is unremarkable and benign. The history, exam, diagnostic testing, and current condition do not suggest any significant pathology to warrant further testing, continued ED treatment, admission, or surgical evaluation at this point. The vital signs have been stable. The patient does not have uncontrollable pain, intractable vomiting, or other significant symptoms. The patient's condition is stable and appropriate for discharge. The patient will pursue further outpatient evaluation with a primary care physician or other designated or consulting physician as indicated in the discharge instructions. The patient expressed understanding and was agreeable with this plan. Diagnosis Primary Impression: Light-headedness Additional Impression: Dehydration Referrals: Primary Care Physician Patient Instructions: General Instructions, Lightheadedness (ED) Med/Other Pt SpecificInfo: No Change to Meds Scripts No Active Prescriptions or Reported Meds Disposition: 01 DISCHARGE HOME Condition: Stable Kia Fournier MD Sep 09, 2016 23:59
[2016-09-10] MEDS ORDERED: SODIUM CHLOR 0.9% 1000 ML INJ 1,000 ML IV ONE ×2 (00:15→02:15)
[2016-09-10 00:42] VITALS: O2SAT 99
[2016-09-10 01:17] LABS: AUTOMATED NEUTROPHIL # 4.7 TH/MM3 (1.8-7.7); BASOPHIL # 0.1 TH/MM3 (0-0.2); BASOPHIL % 0.6 % (0.0-2.0); EOSINOPHIL # 0.4 TH/MM3 (0-0.4); EOSINOPHIL % 4.2 % (0.0-4.0); HEMATOCRIT 42.1 % (39.0-51.0); HEMO FLAGS DIFF FINAL; LYMPHOCYTE # 3.1 TH/MM3 (1.0-4.8); MEAN CELL VOLUME 88.9 FL (80.0-100.0); MEAN CORPUSCULAR HEMOGLOBIN 29.5 PG (27.0-34.0); MEAN CORPUSCULAR HGB CONC 33.2 % (32.0-36.0); MONO % 12.3 % (0.0-8.0); NEUT % 49.9 % (16.0-70.0); PLATELET COUNT 190 TH/MM3 (150-450); RED BLOOD COUNT 4.74 MIL/MM3 (4.50-5.90); RED CELL DISTRIBUTION WIDTH 13.7 % (11.6-17.2); WHITE BLOOD COUNT 9.5 TH/MM3 (4.0-11.0)
[2016-09-10 01:23] LABS: BLOOD, URINE NEG (NEG); COMMENT (UR) CULT NOT INDICATED; CULTURE IF INDICATED CULT NOT INDICATED; GLUCOSE,URINE NEG (NEG); KETONE, URINE 10 mg/dL (NEG); MUCUS URINE MANY /lpf (OCC); NITRITE,URINE NEG (NEG); URINE COLOR YELLOW (YELLW/STRAW)
[2016-09-10 01:40] LABS: ALT (GPT) 11 U/L (12-78); ANION GAP 9 MEQ/L (5-15); AST (GOT) 13 U/L (15-37); BICARBONATE 24.8 MEQ/L (21.0-32.0); BLOOD UREA NITROGEN 10 MG/DL (7-18); CHLORIDE 106 MEQ/L (98-107); GLOMERULAR FILTRATION RATE 112 ML/MIN (>89); MAGNESIUM 2.3 MG/DL (1.5-2.5); POTASSIUM 3.3 MEQ/L (3.5-5.1); SODIUM (NA) 140 MEQ/L (136-145)
[2016-09-10 01:42] LABS: ALKALINE PHOSPHATASE 67 U/L (45-117); TOTAL BILIRUBIN ADULT 1.1 MG/DL (0.2-1.0)
[2016-09-10] MEDS ORDERED: POTASSIUM CHLORIDE 20 MEQ CONTROLLED RELEASE TAB PO ONE (02:15)
== END 2016-09-10 02:50 | disposition home or self-care (01) ==
LOC: NEPE 22:27
DX: R42 Dizziness and giddiness (principal); E86.0 Dehydration; H53.8 Other visual disturbances; J45.909 Unspecified asthma, uncomplicated; F17.200 Nicotine dependence, unspecified, uncomplicated
CPT/HCPCS: 80053; 81001; 83690; 83735; 85025; 96360; 96361; 99284; J7030

== ENCOUNTER 2016-09-10 03:20 | Emergency (ER) | payer SELFPAY ==
[2016-09-10 03:22] VITALS: BP 145/95; PULSE 80; RESP 16; TEMP 98.4; O2SAT 99
== END 2016-09-10 04:00 | disposition left against medical advice (07) ==
LOC: NED 03:20
DX: Z51.89 Encounter for other specified aftercare (principal); Z53.21 Procedure and treatment not carried out due to patient leaving prior to being seen by health care provider
CPT/HCPCS: 99281

== ENCOUNTER 2016-09-24 14:39 | Emergency (ER) | payer OTHER ==
[~2016-09-24] VITALS: Ht 182.9 cm; Wt 75.0 kg
[2016-09-24 15:50] VITALS: BP 134/91; PULSE 76; RESP 20; TEMP 98.3; O2SAT 99
[2016-09-24] MEDS ORDERED: LIDOCAINE HCL 1% 50 ML VIAL INFIL ONE (16:15)
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
[2016-09-24] MEDS ORDERED: IBUP800T23 PO (16:20)
[2016-09-24] MEDS ORDERED: AUGM875T3 PO (16:49)
== END 2016-09-24 17:00 ==
LOC: NEPK 14:39
DX: S01.511A Laceration without foreign body of lip, initial encounter (principal); W50.0XXA Accidental hit or strike by another person, initial encounter; F17.210 Nicotine dependence, cigarettes, uncomplicated
CPT/HCPCS: 12011

== ENCOUNTER 2016-11-16 23:05 | Emergency (ER) | payer OTHER ==
[~2016-11-16] VITALS: Ht 188 cm; Wt 65.5 kg
[~2016-11-16 23:05] MED LIST changes: +AUGM875T3 PO; -CIPR-9 PO; +IBUP800T23 PO; -PROM1SUP7 RECTAL; -PROM25TA10 PO
[2016-11-16 23:16] VITALS: BP 155/80; PULSE 95; RESP 22; TEMP 98.5; O2SAT 95
--- NOTE | 2016-11-17 01:16 | PD ---
HPI Chief Complaint: Psychiatric Symptoms Time Seen by Provider: 01:14 Travel History International Travel<30 days: No Contact w/Intl Traveler<30days: No Traveled to known affect area: No History of Present Illness HPI 21-year-old male presents to the emergency department with law office assistant as a Rose act. Patient here denies any complaints. Patient is not suicidal or homicidal. Patient denies any chronic medical conditions. Patient admits to substance use. Patient denies any recent injury or trauma. Patient denies any fever or chills. Patient does not report any head pain chest pain shortness of breath abdominal pain flank pain or extremity injury or pain. PFSH Past Medical History Narrative Medical asthma; polysubstance use; nursing notes reviewed Asthma: Yes Diminished Hearing: No Respiratory: Yes Immunizations Current: Yes Seizures: Yes Social History Alcohol Use: Yes (socially) Tobacco Use: Yes (2 PPD) Substance Use: Yes (marijuana daily. ) Allergies-Medications (Allergen,Severity, Reaction): Coded Allergies: No Known Allergies (Verified , 09/24/16) Reported Meds & Prescriptions Reported Meds & Active Scripts Active Augmentin (Amoxicillin-Clavulanate) 875-125 Mg Tab 1 Tab PO BID 7 Days Ibuprofen 800 Mg Tab 800 Mg PO Q6HR PRN Review of Systems Except as stated in HPI: all other systems reviewed are Neg General / Constitutional: No: Fever HENT: No: Congestion Cardiovascular: No: Chest Pain or Discomfort Respiratory: No: Shortness of Breath Gastrointestinal: No: Abdominal Pain Genitourinary: No: Flank Pain Musculoskeletal: No: Pain Skin: No Rash Neurologic: No: Weakness Psychiatric: Positive: Substance Abuse, No: Suicidal Ideations, Homicidal Ideation Hematologic/Lymphatic: No: Lymph Node Enlargement Physical Exam Narrative GENERAL: Well-developed well-nourished male in no acute distress no respiratory distress SKIN: Warm and dry. HEAD: Normocephalic. EYES: No scleral icterus. No injection or drainage. NECK: Supple, trachea midline. No JVD or lymphadenopathy. CARDIOVASCULAR: Regular rate and rhythm without murmurs, gallops, or rubs. RESPIRATORY: Breath sounds equal bilaterally. No accessory muscle use. GASTROINTESTINAL: Abdomen soft, non-tender, nondistended. MUSCULOSKELETAL: No cyanosis, or edema. BACK: Nontender without obvious deformity. No CVA tenderness. Data Data Last Documented VS Vital Signs Date Time Temp Pulse Resp B/P (MAP) Pulse Ox O2 Delivery O2 Flow Rate FiO2 11/16/16 23:16 98.5 95 22 155/80 (105) 95 Orders Orders Complete Blood Count With Diff (11/17/16 01:08) Comprehensive Metabolic Panel (11/17/16 01:08) Psych Screen (11/17/16 01:08) Drug Screen, Random Urine (11/17/16 01:08) Alcohol (Ethanol) (11/17/16 01:08) Potassium Chloride (Kcl) (11/17/16 03:00) Diet Heart Healthy (11/17/16 Breakfast) Labs Laboratory Tests Test 11/17/16 00:25 11/17/16 02:00 Urine Opiates Screen NEG Urine Barbiturates Screen NEG Urine Amphetamines Screen NEG Urine Benzodiazepines Screen NEG Urine Cocaine Screen NEG Urine Cannabinoids Screen NEG White Blood Count 8.7 TH/MM3 Red Blood Count 4.84 MIL/MM3 Hemoglobin 14.6 GM/DL Hematocrit 43.2 % Mean Corpuscular Volume 89.2 FL Mean Corpuscular Hemoglobin 30.3 PG Mean Corpuscular Hemoglobin Concent 33.9 % Red Cell Distribution Width 14.3 % Platelet Count 187 TH/MM3 Mean Platelet Volume 10.7 FL Neutrophils (%) (Auto) 53.1 % Lymphocytes (%) (Auto) 32.3 % Monocytes (%) (Auto) 13.1 % Eosinophils (%) (Auto) 1.1 % Basophils (%) (Auto) 0.4 % Neutrophils # (Auto) 4.6 TH/MM3 Lymphocytes # (Auto) 2.8 TH/MM3 Monocytes # (Auto) 1.1 TH/MM3 Eosinophils # (Auto) 0.1 TH/MM3 Basophils # (Auto) 0.0 TH/MM3 CBC Comment DIFF FINAL Differential Comment Blood Urea Nitrogen 17 MG/DL Creatinine 1.18 MG/DL Random Glucose 66 MG/DL Total Protein 8.1 GM/DL Albumin 4.0 GM/DL Calcium Level 9.2 MG/DL Alkaline Phosphatase 68 U/L Aspartate Amino Transf (AST/SGOT) 13 U/L Alanine Aminotransferase (ALT/SGPT) 10 U/L Total Bilirubin 1.2 MG/DL Sodium Level 140 MEQ/L Potassium Level 3.4 MEQ/L Chloride Level 108 MEQ/L Carbon Dioxide Level 23.9 MEQ/L Anion Gap 8 MEQ/L Estimat Glomerular Filtration Rate 94 ML/MIN Ethyl Alcohol Level LESS THAN 3 MG/DL MDM Medical Decision Making Medical Screen Exam Complete: Yes Emergency Medical Condition: Yes Medical Record Reviewed: Yes Interpretation(s) CBC & BMP Diagram 11/17/16 02:00 Total Protein 8.1, Albumin 4.0, Calcium Level 9.2, Alkaline Phosphatase 68, Aspartate Amino Transf (AST/SGOT) 13 L, Alanine Aminotransferase (ALT/SGPT) 10 L , Total Bilirubin 1.2 H Urine drug screen negative Serum alcohol less than 3 Differential Diagnosis Polysubstance ingestion, polysubstance abuse, mood disorder, Rose act Narrative Course Specimens collected and sent for resulting for medical clearance for psych evaluation suspect polysubstance ingestion and polysubstance ingestion mood disorder Diagnosis Primary Impression: Mood disorder Cait Murillo MD Nov 17, 2016 01:16
[2016-11-17 02:27] LABS: AUTOMATED NEUTROPHIL # 4.6 TH/MM3 (1.8-7.7); BASOPHIL % 0.4 % (0.0-2.0); EOSINOPHIL # 0.1 TH/MM3 (0-0.4); EOSINOPHIL % 1.1 % (0.0-4.0); HEMATOCRIT 43.2 % (39.0-51.0); HEMO FLAGS DIFF FINAL; LYMPH % 32.3 % (9.0-44.0); LYMPHOCYTE # 2.8 TH/MM3 (1.0-4.8); MEAN CELL VOLUME 89.2 FL (80.0-100.0); MEAN CORPUSCULAR HEMOGLOBIN 30.3 PG (27.0-34.0); MEAN CORPUSCULAR HGB CONC 33.9 % (32.0-36.0); MONO % 13.1 % (0.0-8.0); NEUT % 53.1 % (16.0-70.0); PLATELET COUNT 187 TH/MM3 (150-450); RED BLOOD COUNT 4.84 MIL/MM3 (4.50-5.90); RED CELL DISTRIBUTION WIDTH 14.3 % (11.6-17.2); WHITE BLOOD COUNT 8.7 TH/MM3 (4.0-11.0)
[2016-11-17 02:42] LABS: ALKALINE PHOSPHATASE 68 U/L (45-117); TOTAL BILIRUBIN ADULT 1.2 MG/DL (0.2-1.0)
[2016-11-17 02:45] LABS: ALCOHOL LESS THAN 3 MG/DL (0-5); ALT (GPT) 10 U/L (12-78); ANION GAP 8 MEQ/L (5-15); AST (GOT) 13 U/L (15-37); BICARBONATE 23.9 MEQ/L (21.0-32.0); BLOOD UREA NITROGEN 17 MG/DL (7-18); CHLORIDE 108 MEQ/L (98-107); GLOMERULAR FILTRATION RATE 94 ML/MIN (>89); POTASSIUM 3.4 MEQ/L (3.5-5.1); SODIUM (NA) 140 MEQ/L (136-145)
[2016-11-17] MEDS ORDERED: POTASSIUM CHLORIDE 20 MEQ CONTROLLED RELEASE TAB PO ONE (03:00)
[2016-11-17 08:00] VITALS: BP 116/62; PULSE 65; RESP 20; O2SAT 98
[2016-11-17 14:57] VITALS: BP 119/70; PULSE 85; RESP 20; O2SAT 99
[2016-11-17 15:54] VITALS: BP 107/57; PULSE 86; RESP 16; TEMP 98.6; O2SAT 97
[2016-11-17 20:21] VITALS: BP 122/69; PULSE 70; RESP 18
[2016-11-18 06:41] VITALS: BP 115/72; PULSE 81; RESP 17; O2SAT 98
[2016-11-18 10:48] VITALS: BP 134/64; PULSE 75; RESP 14
[2016-11-18 11:53] VITALS: BP 134/64; PULSE 75; RESP 14
--- NOTE | 2016-11-18 12:04 | PD ---
History of Present Illness Chief Complaint: Psychiatric Symptoms Time Seen by Provider: 11:45 Travel History International Travel<30 Days: No Contact w/Intl Traveler<30days: No Known affected area: No Legal Status Legal Status: Rose Act Rose Act Signed By: Ayleen Ca Rose Act Comment: 11/16/2016 1055PM OFC. Kahlil TEJEDA #[id number] CASE #[id number] History of Present Illness: History of Present Illness HPI 21-year-old male with no previous psychiatric history and history of substance use disorder, substance induced mood disorder who presents to the emergency department with divorce lawyer as a Rose act. The Rose act alleges that he contacted police and advised them that he has been walking for 2 days and that he has not eaten. It further states " I observed Uriostegui talking to invisible people. He also stated he would like to take his life as well as others. He did not make any attempt at harming himself or others. He has been monitored here in [facility] and presented no behavioral concerns and no suicidality. EMR reviewed. Several visits to ED for substance related issues. Current toxicology is negative. Patient has reported use of Flakka in the past which we don't test for. He is alert, oriented male in [facility]. He is maintaining basic hygiene. Speech is clear , logical, goal directed. No psychosis,no leidy and no suicidal or homicidal ideation. He basically states that he came to the hospital " because my feet hurt and they were swollen. I couldn't walk". My mother said I needed to leave the house and I needed to talk to someone". He denies any suicidal or homicidal ideation, intent or plan. PFSH Past Medical History Asthma: Yes Diminished Hearing: No Respiratory: Yes Immunizations Current: Yes Seizures: Yes Psychiatric History Psychiatric History Hx Psychiatric Treatment: Patient admitted to ED for substance use disorder and acute psychosis. Patient with no known inpatient or outpatient psychiatric treatment. History of Inpatient Treatment: No Guns or firearms in home: No Social History Single male, Homeless, unemployed. Hx Alcohol Use: Yes (socially) Hx Tobacco Use: Yes (2 PPD) Hx Substance Use: Yes (marijuana, flakka) Substance Use Type: Marijuana, Other Other Substances Used: flakka Hx of Substance Use Treatment: No Family Psychiatric History Negative Allergies-Medications (Allergen,Severity, Reaction): Coded Allergies: No Known Allergies (Verified , 09/24/16) Reported Meds & Prescriptions Reported Meds & Active Scripts Active Augmentin (Amoxicillin-Clavulanate) 875-125 Mg Tab 1 Tab PO BID 7 Days Ibuprofen 800 Mg Tab 800 Mg PO Q6HR PRN Review of Systems Except as stated in HPI: all other systems reviewed are Neg Exam Alert: Yes [place]: Person (ox4) Mood: Calm Affect: Appropriate Speech: Clear, Logical Eye Contact: Normal Memory Intact: Comment (Not impaired) Hallucinations: Other (Negative) Delusions: No Suicidal: Ideation (Deneis any) Homicidal: Ideation (Deneis any) Insight/Judgement Poor. Not impaired MDM Medical Decision Making Medical Record Reviewed: Yes Assessment/Plan 21-year-old male with no previous psychiatric history and history of substance use disorder, substance induced mood disorder who presents to the emergency department with divorce lawyer as a Rose act. The Rose act alleges that he contacted police and advised them that he has been walking for 2 days and that he has not eaten. It further states " I observed Moody talking to invisible people. He also stated he would like to take his life as well as others. He did not make any attempt at harming himself or others. He has been monitored here in [facility] and presented no behavioral concerns and no suicidality. Patient does not present any acute psychiatric symptomatology. he denies any suicidal or homicidal ideation. He stated he needed to talk to someone about finding a place to live. He met with case investigator He does not present any criteria to remain under a Rose act. He is looking for assistance with prison. Orders Orders Diet Regular Basic (11/17/16 Dinner) Diet Regular Basic (11/18/16 Breakfast) Diet Regular Basic (11/18/16 Lunch) Results Vital Signs Date Time Temp Pulse Resp B/P (MAP) Pulse Ox O2 Delivery O2 Flow Rate FiO2 11/18/16 10:48 75 14 134/64 (87) 11/18/16 06:41 81 17 115/72 (86) 98 Room Air 11/17/16 20:21 70 18 122/69 (86) 11/17/16 15:54 98.6 86 16 107/57 (74) 97 Room Air 11/17/16 14:57 85 20 119/70 (86) 99 Room Air Diagnosis Primary Impression: Malingering Psychiatrically Cleared: Yes Med/ Other Pt Specific Info: No Meds Exist/No RX given Disposition: 01 DISCHARGE HOME Condition: Stable Jing Patterson Nov 18, 2016 12:03
== END 2016-11-18 12:51 | disposition home or self-care (01) ==
LOC: NEPC 23:05 → NEPJ 11-18 12:51
DX: F39 Unspecified mood [affective] disorder (principal); F17.200 Nicotine dependence, unspecified, uncomplicated
CPT/HCPCS: 80053; 80307; 85025

== ENCOUNTER 2016-11-21 00:44 | Emergency (ER) | payer SELFPAY ==
[~2016-11-21] VITALS: Ht 188 cm; Wt 68.0 kg
[2016-11-21 00:55] VITALS: BP 130/70; PULSE 58; RESP 18; TEMP 98.3; O2SAT 100
[2016-11-21] MEDS ORDERED: SODIUM CHLOR 0.9% 1000 ML INJ 1,000 ML IV SCH (01:02)
--- NOTE | 2016-11-21 01:07 | PD ---
HPI Chief Complaint: Abdominal Pain Time Seen by Provider: 00:56 Travel History International Travel<30 days: No Contact w/Intl Traveler<30days: No Traveled to known affect area: No History of Present Illness HPI The patient is a 21-year-old [place] male who presents to the emergency department via EMS for abdominal pain. The patient states he developed lower abdominal pain at approximately 5 PM that is associated with nausea and vomiting. The abdominal pain is lower, radiates to the left and right lower quadrant, associated nausea and vomiting, but he denies any diarrhea. Last bowel movement was earlier today, no history of constipation. The patient denies any fever, chills, or sweats. The patient denies any previous abdominal surgeries. Symptoms are moderate without any current alleviating or exacerbating factors. The patient denies any associated dysuria, frequency, urgency, or hematuria. PFSH Past Medical History Asthma: Yes Diminished Hearing: No Respiratory: Yes Immunizations Current: Yes Seizures: Yes Tetanus Vaccination: Unknown Influenza Vaccination: No Past Surgical History Surgical History: No Previous Surgery Social History Alcohol Use: Yes (socially) Tobacco Use: Yes (2 PPD) Substance Use: Yes (marijuana, flakka) Allergies-Medications (Allergen,Severity, Reaction): Coded Allergies: No Known Allergies (Verified , 11/21/16) Reported Meds & Prescriptions Reported Meds & Active Scripts Active No Active Prescriptions or Reported Medications Review of Systems Except as stated in HPI: all other systems reviewed are Neg General / Constitutional: No: Fever, Chills Cardiovascular: No: Chest Pain or Discomfort Respiratory: No: Shortness of Breath Gastrointestinal: Positive: Nausea, Vomiting, Abdominal Pain, No: Diarrhea, Constipation Genitourinary: No: Dysuria Physical Exam Narrative GENERAL: Awake, alert, nontoxic-appearing 21-year-old male who appears his stated age and is in no acute respiratory distress. SKIN: Focused skin assessment warm/dry. HEAD: Atraumatic. Normocephalic. EYES: Pupils equal and round. No scleral icterus. No injection or drainage. ENT: No nasal bleeding or discharge. Mucous membranes pink and moist. NECK: Trachea midline. No JVD. CARDIOVASCULAR: Regular rate and rhythm. No murmur appreciated. RESPIRATORY: No accessory muscle use. Clear to auscultation. Breath sounds equal bilaterally. GASTROINTESTINAL: Abdomen soft, tender palpation left and right lower quadrants. No rebound tenderness, guarding, rigidity. MUSCULOSKELETAL: No obvious deformities. No clubbing. No cyanosis. No edema. NEUROLOGICAL: Awake and alert. No obvious cranial nerve deficits. Motor grossly within normal limits. Normal speech. PSYCHIATRIC: Appropriate mood and affect; insight and judgment normal. Data Data Last Documented VS Vital Signs Date Time Temp Pulse Resp B/P (MAP) Pulse Ox O2 Delivery O2 Flow Rate FiO2 11/21/16 00:57 18 11/21/16 00:55 98.3 58 130/70 (90) 100 Orders Orders Complete Blood Count With Diff (11/21/16 01:02) Comprehensive Metabolic Panel (11/21/16 01:02) Lipase (11/21/16 01:02) Urinalysis - C+S If Indicated (11/21/16 01:02) Ct Abd/Pel W Iv Contrast(Rout) (11/21/16 01:02) Iv Access Insert/Monitor (11/21/16 01:02) Ecg Monitoring (11/21/16 01:02) Oximetry (11/21/16 01:02) Morphine Inj (Morphine Inj) (11/21/16 01:15) Ondansetron Inj (Zofran Inj) (11/21/16 01:15) Sodium Chlor 0.9% 1000 Ml Inj (Ns 1000 M (11/21/16 01:02) Sodium Chloride 0.9% Flush (Ns Flush) (11/21/16 01:15) Oral Contrast - Adult (11/21/16 01:37) Diatrizoate Liq ( Gastrolizy Liq) (11/21/16 02:46) Labs Laboratory Tests Test 11/21/16 01:05 11/21/16 01:30 White Blood Count 7.1 TH/MM3 Red Blood Count 4.39 MIL/MM3 Hemoglobin 13.3 GM/DL Hematocrit 39.3 % Mean Corpuscular Volume 89.7 FL Mean Corpuscular Hemoglobin 30.2 PG Mean Corpuscular Hemoglobin Concent 33.7 % Red Cell Distribution Width 14.2 % Platelet Count 169 TH/MM3 Mean Platelet Volume 9.6 FL Neutrophils (%) (Auto) 44.3 % Lymphocytes (%) (Auto) 41.3 % Monocytes (%) (Auto) 10.5 % Eosinophils (%) (Auto) 3.3 % Basophils (%) (Auto) 0.6 % Neutrophils # (Auto) 3.1 TH/MM3 Lymphocytes # (Auto) 2.9 TH/MM3 Monocytes # (Auto) 0.7 TH/MM3 Eosinophils # (Auto) 0.2 TH/MM3 Basophils # (Auto) 0.0 TH/MM3 CBC Comment DIFF FINAL Differential Comment Blood Urea Nitrogen 11 MG/DL Creatinine 0.79 MG/DL Random Glucose 85 MG/DL Total Protein 7.6 GM/DL Albumin 3.8 GM/DL Calcium Level 8.7 MG/DL Alkaline Phosphatase 60 U/L Aspartate Amino Transf (AST/SGOT) 14 U/L Alanine Aminotransferase (ALT/SGPT) 11 U/L Total Bilirubin 0.5 MG/DL Sodium Level 140 MEQ/L Potassium Level 4.0 MEQ/L Chloride Level 106 MEQ/L Carbon Dioxide Level 27.4 MEQ/L Anion Gap 7 MEQ/L Estimat Glomerular Filtration Rate 149 ML/MIN Lipase 69 U/L Urine Color YELLOW Urine Turbidity CLEAR Urine pH 6.0 Urine Specific [place] 1.038 Urine Protein TRACE mg/dL Urine Glucose (UA) NEG mg/dL Urine Ketones NEG mg/dL Urine Occult Blood NEG Urine Nitrite NEG Urine Bilirubin NEG Urine Urobilinogen 2.0 MG/DL Urine Leukocyte Esterase NEG Urine RBC 1 /hpf Urine WBC 1 /hpf Urine Squamous Epithelial Cells <1 /hpf Urine Bacteria RARE /hpf Urine Hyaline Casts 1 /lpf Urine Mucus MANY /lpf Microscopic Urinalysis Comment CULT NOT INDICATED MDM Medical Decision Making Medical Screen Exam Complete: Yes Emergency Medical Condition: Yes Medical Record Reviewed: Yes Interpretation(s) Laboratory Tests Test 11/21/16 01:05 11/21/16 01:30 White Blood Count 7.1 TH/MM3 Red Blood Count 4.39 MIL/MM3 Hemoglobin 13.3 GM/DL Hematocrit 39.3 % Mean Corpuscular Volume 89.7 FL Mean Corpuscular Hemoglobin 30.2 PG Mean Corpuscular Hemoglobin Concent 33.7 % Red Cell Distribution Width 14.2 % Platelet Count 169 TH/MM3 Mean Platelet Volume 9.6 FL Neutrophils (%) (Auto) 44.3 % Lymphocytes (%) (Auto) 41.3 % Monocytes (%) (Auto) 10.5 % Eosinophils (%) (Auto) 3.3 % Basophils (%) (Auto) 0.6 % Neutrophils # (Auto) 3.1 TH/MM3 Lymphocytes # (Auto) 2.9 TH/MM3 Monocytes # (Auto) 0.7 TH/MM3 Eosinophils # (Auto) 0.2 TH/MM3 Basophils # (Auto) 0.0 TH/MM3 CBC Comment DIFF FINAL Differential Comment Blood Urea Nitrogen 11 MG/DL Creatinine 0.79 MG/DL Random Glucose 85 MG/DL Total Protein 7.6 GM/DL Albumin 3.8 GM/DL Calcium Level 8.7 MG/DL Alkaline Phosphatase 60 U/L Aspartate Amino Transf (AST/SGOT) 14 U/L Alanine Aminotransferase (ALT/SGPT) 11 U/L Total Bilirubin 0.5 MG/DL Sodium Level 140 MEQ/L Potassium Level 4.0 MEQ/L Chloride Level 106 MEQ/L Carbon Dioxide Level 27.4 MEQ/L Anion Gap 7 MEQ/L Estimat Glomerular Filtration Rate 149 ML/MIN Lipase 69 U/L Urine Color YELLOW Urine Turbidity CLEAR Urine pH 6.0 Urine Specific [place] 1.038 Urine Protein TRACE mg/dL Urine Glucose (UA) NEG mg/dL Urine Ketones NEG mg/dL Urine Occult Blood NEG Urine Nitrite NEG Urine Bilirubin NEG Urine Urobilinogen 2.0 MG/DL Urine Leukocyte Esterase NEG Urine RBC 1 /hpf Urine WBC 1 /hpf Urine Squamous Epithelial Cells <1 /hpf Urine Bacteria RARE /hpf Urine Hyaline Casts 1 /lpf Urine Mucus MANY /lpf Microscopic Urinalysis Comment CULT NOT INDICATED CT of the abdomen and pelvis reveals normal examination Differential Diagnosis Differential diagnosis includes appendicitis, diverticulitis, nephrolithiasis, UTI, epididymitis, viral syndrome, gastroenteritis Narrative Course IV was established, labs are drawn and sent, and the patient was placed on cardiac telemetry monitoring and continuous pulse oximetry monitoring. The patient was administer morphine, Zofran, and IV fluids. CT of the abdomen and pelvis with IV and oral contrast was ordered to rule out appendicitis. Labs are unremarkable. White count was normal. LFTs and lipase were noted to be slightly lower than normal standard. UA is negative. CT the abdomen and pelvis is unremarkable. The patient was reevaluated at 4:22 AM, his pain had resolved. Patient is stable for outpatient follow-up. Diagnosis Primary Impression: Abdominal pain Qualified Codes: R10.30 - Lower abdominal pain, unspecified Patient Instructions: General Instructions, Narcotic given in the ED Additional Instructions: Zofran as needed. Clear liquid diet and advance as tolerated. Follow-up with your primary physician. Return if symptoms worsen or progress. Med/Other Pt SpecificInfo: Prescription(s) given Scripts Ondansetron Odt (Zofran Odt) 4 Mg Tab 4 MG SL Q6HR Y for Nausea/Vomiting, #7 TAB 0 Refills Prov: Jose Edmonds MD 11/21/16 Disposition: 01 DISCHARGE HOME Condition: Stable Jose Edmonds MD Nov 21, 2016 01:07
[2016-11-21] MEDS ORDERED: SODIUM CHLORIDE 0.9% FLUSH 10 ML FLUSH IV FLUSH PRN (01:15)
[2016-11-21] MEDS ORDERED: ONDANSETRON HCL 4 MG/2 ML VIAL IVP ONE (01:15)
[2016-11-21] MEDS ORDERED: MORPHINE SULFATE 4 MG/ML INJ IV PUSH ONE (01:15)
[2016-11-21 01:27] LABS: AUTOMATED NEUTROPHIL # 3.1 TH/MM3 (1.8-7.7); BASOPHIL % 0.6 % (0.0-2.0); EOSINOPHIL # 0.2 TH/MM3 (0-0.4); EOSINOPHIL % 3.3 % (0.0-4.0); HEMATOCRIT 39.3 % (39.0-51.0); HEMO FLAGS DIFF FINAL; LYMPH % 41.3 % (9.0-44.0); LYMPHOCYTE # 2.9 TH/MM3 (1.0-4.8); MEAN CELL VOLUME 89.7 FL (80.0-100.0); MEAN CORPUSCULAR HEMOGLOBIN 30.2 PG (27.0-34.0); MEAN CORPUSCULAR HGB CONC 33.7 % (32.0-36.0); MONO % 10.5 % (0.0-8.0); NEUT % 44.3 % (16.0-70.0); PLATELET COUNT 169 TH/MM3 (150-450); RED BLOOD COUNT 4.39 MIL/MM3 (4.50-5.90); RED CELL DISTRIBUTION WIDTH 14.2 % (11.6-17.2); WHITE BLOOD COUNT 7.1 TH/MM3 (4.0-11.0)
[2016-11-21 01:52] LABS: ALKALINE PHOSPHATASE 60 U/L (45-117); ALT (GPT) 11 U/L (12-78); TOTAL BILIRUBIN ADULT 0.5 MG/DL (0.2-1.0)
[2016-11-21 02:08] LABS: ANION GAP 7 MEQ/L (5-15); AST (GOT) 14 U/L (15-37); BICARBONATE 27.4 MEQ/L (21.0-32.0); BLOOD UREA NITROGEN 11 MG/DL (7-18); CHLORIDE 106 MEQ/L (98-107); GLOMERULAR FILTRATION RATE 149 ML/MIN (>89); SODIUM (NA) 140 MEQ/L (136-145)
[2016-11-21 02:18] LABS: BACTERIA, URINE RARE /hpf; BLOOD, URINE NEG (NEG); COMMENT (UR) CULT NOT INDICATED; CULTURE IF INDICATED CULT NOT INDICATED; GLUCOSE,URINE NEG (NEG); HYALINE CAST, URINE 1 /lpf (RARE); KETONE, URINE NEG (NEG); MUCUS URINE MANY /lpf (OCC); NITRITE,URINE NEG (NEG); SQUAMOUS EPITHELIAL CELL URINE <1 /hpf (0-5); URINE COLOR YELLOW (YELLW/STRAW)
[2016-11-21] MEDS ORDERED: DIATRIZOATE MEGLUM/DIATRIZOATE SOD 9 ML CUP ONE (02:46)
--- NOTE | 2016-11-21 04:17 | RADRPT ---
EXAM DATE/TIME: 11/21/2016 03:56 [facility] COMPARISON: CT ABDOMEN & PELVIS W CONTRAST, August 03, 2016, 4:22. INDICATIONS : Lower abdominal pain. IV CONTRAST: 100 cc Omnipaque 350 (iohexol) IV ORAL CONTRAST: Partial prescribed oral contrast ingested. RADIATION DOSE: 9.96 CTDIvol (mGy) MEDICAL HISTORY : None SURGICAL HISTORY : None. ENCOUNTER: Initial ACUITY: 1 day PAIN SCALE: 8/10 LOCATION: lower quadrant abdomen TECHNIQUE: Volumetric scanning of the abdomen and pelvis was performed. Using automated exposure control and ad justment of the mA and/or kV according to patient size, radiation dose was kept as low as reasonably achievable to obtain optimal diagnostic quality images. DICOM format image data is available electro nically for review and comparison. FINDINGS: LOWER LUNGS: The visualized lower lungs are clear. LIVER: Homogeneous density without lesion. There is no dilation of the biliary tree. No calcified gallston es. SPLEEN: Normal size without lesion. PANCREAS: Within normal limits. KIDNEYS: Normal in size and shape. There is no mass, stone or hydronephrosis. ADRENAL GLANDS: Within normal limits. VASCULAR: There is no aortic aneurysm. BOWEL/MESENTERY: The stomach, small bowel, and colon demonstrate no acute abnormality. There is no free intraperitone al air or fluid. ABDOMINAL WALL: Within normal limits. RETROPERITONEUM: There is no lymphadenopathy. BLADDER: No wall thickening or mass. REPRODUCTIVE: Within normal limits. INGUINAL: There is no lymphadenopathy or hernia. MUSCULOSKELETAL: Within normal limits for patient age. CONCLUSION: Normal examination. Sergio Ruelas Jr., MD on November 21, 2016 at 4:13 Board Certified Radiologist. This report was verified electronically.
[2016-11-21] MEDS ORDERED: ZOFR4TAB3 SL (04:23)
[2016-11-21 05:20] VITALS: BP 121/75
== END 2016-11-21 05:22 | disposition home or self-care (01) ==
LOC: NEPE 00:44
DX: R10.30 Lower abdominal pain, unspecified (principal); R11.2 Nausea with vomiting, unspecified; F17.200 Nicotine dependence, unspecified, uncomplicated; J45.909 Unspecified asthma, uncomplicated; R56.9 Unspecified convulsions
CPT/HCPCS: 74177; 80053; 81001; 83690; 85025; 96361; 96374; 96375; 99285; J2270; J2405; J7030; Q9963; Q9967

== ENCOUNTER 2016-11-24 06:29 | Emergency (ER) | payer SELFPAY ==
[~2016-11-24] VITALS: Ht 188 cm; Wt 72.5 kg
[2016-11-24 06:29] VITALS: BP 138/96; PULSE 112; RESP 16; TEMP 98.7; O2SAT 100
[~2016-11-24 06:29] MED LIST changes: +ZOFR4TAB3 SL
[2016-11-24] MEDS ORDERED: NYSTATIN 100,000 U/GM PWD 15 GM BTL TOPICAL ONE (07:00)
[2016-11-24] MEDS ORDERED: NYST10007 TOPICAL (07:09)
--- NOTE | 2016-11-24 07:10 | PD ---
HPI Chief Complaint: Pain: Acute or Chronic Time Seen by Provider: 06:55 Travel History International Travel<30 days: No Contact w/Intl Traveler<30days: No Traveled to known affect area: No History of Present Illness HPI Patient is a 21-year-old male presenting to the emergency department for evaluation of bilateral foot pain. Patient is not quantifying his pain, he had difficulty removing his shoes. He appears to be in pain as he removes his shoes. PFSH Past Medical History Asthma: Yes Diminished Hearing: No Psychiatric: Yes Respiratory: Yes Immunizations Current: Yes Seizures: Yes Tetanus Vaccination: Unknown Influenza Vaccination: No Past Surgical History Surgical History: No Previous Surgery Social History Alcohol Use: Yes (socially) Tobacco Use: Yes (2 PPD) Substance Use: Yes (marijuana, flakka) Allergies-Medications (Allergen,Severity, Reaction): Coded Allergies: No Known Allergies (Verified , 11/24/16) Reported Meds & Prescriptions Reported Meds & Active Scripts Active No Active Prescriptions or Reported Medications Review of Systems Except as stated in HPI: all other systems reviewed are Neg Musculoskeletal: Positive: Myalgias, Pain Skin: Positive Change in Pigmentation Physical Exam Narrative GENERAL: Well-developed, well-nourished, alert male. SKIN: The plantar aspect of her feet bilaterally with white wet skin. No excoriations noted. Erythema or induration. Foul odor noted HEAD: Normocephalic. EYES: No scleral icterus. No injection or drainage. NECK: Supple, trachea midline. No JVD or lymphadenopathy. CARDIOVASCULAR: Regular rate and rhythm without murmurs, gallops, or rubs. RESPIRATORY: Breath sounds equal bilaterally. No accessory muscle use. GASTROINTESTINAL: Abdomen soft, non-tender, nondistended. MUSCULOSKELETAL: No cyanosis, or edema. BACK: Nontender without obvious deformity. No CVA tenderness. Data Data Last Documented VS Vital Signs Date Time Temp Pulse Resp B/P (MAP) Pulse Ox O2 Delivery O2 Flow Rate FiO2 11/24/16 06:29 98.7 112 16 138/96 (110) 100 Room Air Orders Orders Wound Care (11/24/16 06:53) Nystatin Powder (Mycostatin Powder) (11/24/16 07:00) MDM Medical Decision Making Medical Screen Exam Complete: Yes Emergency Medical Condition: Yes Interpretation(s) Vital Signs Date Time Temp Pulse Resp B/P (MAP) Pulse Ox O2 Delivery O2 Flow Rate FiO2 11/24/16 06:29 98.7 112 16 138/96 (110) 100 Room Air Differential Diagnosis Tinea pedis versus dermatitis versus poor fitting shoes versus other Narrative Course Patient presented for evaluation of bilateral feet pain. On exam patient's feet are wet and his shoes are ill fitting. Wound care ordered. Topical antifungal powder ordered. Patient will be placed in several pairs of socks as issues are wet and ill fitting. Patient is tachycardic on arrival likely secondary to pain. Patient advised to keep his feet dry is encouraged to obtain a larger appears shoes that fit better. Encourage return to emergency department for any new or worsening symptoms. Patient is stable for discharge. Diagnosis Primary Impression: Foot pain, bilateral Additional Impression: Tinea pedis Qualified Codes: B35.3 - Tinea pedis Referrals: [facility] Primary Care Physician Patient Instructions: General Instructions, Tinea Pedis (DC) Additional Instructions: Keep feet clean and dry Find a larger appears shoes that fit Return to emergency department for any new or worsening symptoms Apply powder twice daily Med/Other Pt SpecificInfo: Prescription(s) given Scripts Nystatin Topical (Nystop Topical) 100,000 Unit/Gm Powd 1 APPLIC TOPICAL Q12HR for Infection, #15 GM 0 Refills Prov: Ramya Pardo 11/24/16 Disposition: 01 DISCHARGE HOME Condition: Stable Ramya Pardo Nov 24, 2016 07:10
[2016-11-24 07:30] VITALS: BP 122/104; PULSE 85; RESP 19; TEMP 97.6; O2SAT 98
[2016-11-24 08:09] VITALS: BP 122/104; TEMP 97.6
--- NOTE | 2016-11-24 08:31 | PD ---
Physical Exam Time Seen by Provider: 08:23 Narrative This is a 21-year-old male that was seen by previous provider, NORMA Vargas, for bilateral foot pain and is being treated with nystatin powder for bilateral tinea pedis. The patient was discharged by Ramya. He apparently has a psych history. He has been acting bizarre and crying for over an hour. The patient is a poor historian and continues to cry and moan all trying to obtain history. He says he wants to talk to somebody. He denies suicidal or homicidal ideations. He denies illicit drug use. Denies alcohol use. Data Data Last Documented VS Vital Signs Date Time Temp Pulse Resp B/P (MAP) Pulse Ox O2 Delivery O2 Flow Rate FiO2 11/24/16 07:30 97.6 85 19 122/104 (110) 98 Room Air Orders Orders Wound Care (11/24/16 06:53) Nystatin Powder (Mycostatin Powder) (11/24/16 07:00) Psych Screen (11/24/16 08:22) Drug Screen, Random Urine (11/24/16 08:22) [facility] Supervised Visit with LAWRENCE: No Differential Diagnosis Malingering, psychosis, polysubstance abuse Narrative Course This is a 21-year-old male that was previously evaluated by NORMA Crowder for bilateral tinea pedis. After she cleared the patient for discharge he continued to act bizarre and cry for over an hour. He has history of psychosis per review of his medical record. The patient wants to be screened by psych voluntarily. He denies suicidal or homicidal ideations. The patient was seen on November 21 and had labs drawn at that time and CBC, CMP, urinalysis were all unremarkable. I do not feel it is necessary to redraw labs at this time. I will order a drug screen. Consult to psych ordered. I do not feel the patient is a threat to himself or others and therefore will not Rose act the patient at this time. Patient medically cleared for psych evaluation. Diagnosis Primary Impression: Foot pain, bilateral Additional Impressions: Tinea pedis Qualified Codes: B35.3 - Tinea pedis Encounter for psychiatric assessment Referrals: [facility] Primary Care Physician Patient Instructions: General Instructions, Tinea Pedis (DC) Departure Forms: Tests/Procedures Additional Instruction: Keep feet clean and dry Find a larger appears shoes that fit Return to emergency department for any new or worsening symptoms Apply powder twice daily Scripts Nystatin Topical (Nystop Topical) 100,000 Unit/Gm Powd 1 APPLIC TOPICAL Q12HR for Infection, #15 GM 0 Refills Prov: Ramya Pardo 11/24/16 Disposition: 01 DISCHARGE HOME Condition: Stable Pavithra Mckeon Nov 24, 2016 08:31
[2016-11-24 10:18] VITALS: BP 122/104
== END 2016-11-24 10:19 | disposition home or self-care (01) ==
LOC: NEPD 06:29
DX: B35.3 Tinea pedis (principal); M79.672 Pain in left foot; M79.671 Pain in right foot; F17.200 Nicotine dependence, unspecified, uncomplicated
CPT/HCPCS: 80307; 99283

== ENCOUNTER 2017-05-09 02:23 | Emergency (ER) | payer SELFPAY ==
[~2017-05-09] VITALS: Ht 188 cm; Wt 75.0 kg
[~2017-05-09 02:23] MED LIST changes: -AUGM875T3 PO; -IBUP800T23 PO; +NYST10007 TOPICAL; -ZOFR4TAB3 SL
[2017-05-09 02:34] VITALS: BP 166/104; PULSE 63; RESP 18; TEMP 98.9; O2SAT 100
--- NOTE | 2017-05-09 03:36 | PD ---
HPI Chief Complaint: Chest Pain Time Seen by Provider: 02:40 Travel History International Travel<30 days: No Contact w/Intl Traveler<30days: No Traveled to known affect area: No History of Present Illness HPI pt is 22 yr old male with multiple visits to the ER for various complaints and other times substance abuse. pt is complainting tonight of chest pain . Pt denies stimulant abuse or cocaine or street drugs , denies coffee or redbull drinks, in ER no apparent distress but he has EKG slightly sudhakar with biphasic t waves V 3 and V 4 PFSH Past Medical History Asthma: Yes Diminished Hearing: No Psychiatric: Yes Respiratory: Yes Immunizations Current: Yes Seizures: Yes Tetanus Vaccination: Unknown Influenza Vaccination: No Past Surgical History Surgical History: No Previous Surgery Social History Alcohol Use: Yes (socially) Tobacco Use: Yes (2 PPD) Substance Use: Yes (marijuana, flakka) Allergies-Medications (Allergen,Severity, Reaction): Coded Allergies: No Known Allergies (Verified , 11/24/16) Reported Meds & Prescriptions Reported Meds & Active Scripts Active No Active Prescriptions or Reported Medications Review of Systems Except as stated in HPI: all other systems reviewed are Neg Cardiovascular: Positive: Chest Pain or Discomfort Physical Exam Narrative GENERAL: SKIN: Warm and dry. HEAD: Atraumatic. Normocephalic. EYES: Pupils equal and round. No scleral icterus. No injection or drainage. ENT: No nasal bleeding or discharge. Mucous membranes pink and moist. NECK: Trachea midline. No JVD. CARDIOVASCULAR: Regular rate and rhythm. RESPIRATORY: No accessory muscle use. Clear to auscultation. Breath sounds equal bilaterally. GASTROINTESTINAL: Abdomen soft, non-tender, nondistended. Hepatic and splenic margins not palpable. MUSCULOSKELETAL: Extremities without clubbing, cyanosis, or edema. No obvious deformities. NEUROLOGICAL: Awake and alert. No obvious cranial nerve deficits. Motor grossly within normal limits. Five out of 5 muscle strength in the arms and legs. Normal speech. PSYCHIATRIC: Appropriate mood and affect; insight and judgment normal. Data Data Last Documented VS Vital Signs Date Time Temp Pulse Resp B/P (MAP) Pulse Ox O2 Delivery O2 Flow Rate FiO2 05/09/17 02:34 98.9 63 18 166/104 (124) 100 Orders Orders Electrocardiogram (05/09/17 03:04) Complete Blood Count With Diff (05/09/17 03:16) Comprehensive Metabolic Panel (05/09/17 03:16) Ckmb (Isoenzyme) Profile (05/09/17 03:16) Troponin I (05/09/17 03:16) Lipase (05/09/17 03:16) Chest, Single Ap (05/09/17 03:16) CKMB (05/09/17 03:35) CKMB% (05/09/17 03:35) Ed Discharge Order (05/09/17 07:16) Labs Laboratory Tests Test 05/09/17 03:35 White Blood Count 9.9 TH/MM3 Red Blood Count 4.67 MIL/MM3 Hemoglobin 14.2 GM/DL Hematocrit 41.9 % Mean Corpuscular Volume 89.9 FL Mean Corpuscular Hemoglobin 30.5 PG Mean Corpuscular Hemoglobin Concent 34.0 % Red Cell Distribution Width 14.1 % Platelet Count 174 TH/MM3 Mean Platelet Volume 10.7 FL Neutrophils (%) (Auto) 65.2 % Lymphocytes (%) (Auto) 22.8 % Monocytes (%) (Auto) 8.4 % Eosinophils (%) (Auto) 3.0 % Basophils (%) (Auto) 0.6 % Neutrophils # (Auto) 6.4 TH/MM3 Lymphocytes # (Auto) 2.3 TH/MM3 Monocytes # (Auto) 0.8 TH/MM3 Eosinophils # (Auto) 0.3 TH/MM3 Basophils # (Auto) 0.1 TH/MM3 CBC Comment DIFF FINAL Differential Comment Blood Urea Nitrogen 5 MG/DL Creatinine 0.92 MG/DL Random Glucose 88 MG/DL Total Protein 8.0 GM/DL Albumin 3.9 GM/DL Calcium Level 9.2 MG/DL Alkaline Phosphatase 63 U/L Aspartate Amino Transf (AST/SGOT) 12 U/L Alanine Aminotransferase (ALT/SGPT) 7 U/L Total Bilirubin 0.9 MG/DL Sodium Level 139 MEQ/L Potassium Level 3.9 MEQ/L Chloride Level 104 MEQ/L Carbon Dioxide Level 25.8 MEQ/L Anion Gap 9 MEQ/L Estimat Glomerular Filtration Rate 124 ML/MIN Total Creatine Kinase 152 U/L Creatine Kinase MB LESS THAN 0.5 NG/ML Troponin I LESS THAN 0.02 NG/ML Lipase 93 U/L MDM Medical Decision Making Medical Screen Exam Complete: Yes Emergency Medical Condition: Yes Differential Diagnosis hx of drug abuse and possible stimulant drug induced prinzmetal coronary vasospasm causing CP vs gerd vs rib pain vs costochondritis Narrative Course ekg has biphasic t waves in V3 V4 not seen on prior ekg , pt refuses to stay for repeat trop. based on drug induced vasospasm to coronary vessels , pt needed rule out before dischrge. pt left AMA Diagnosis Primary Impression: Chest pain Qualified Codes: R07.9 - Chest pain, unspecified Patient Instructions: Chest Pain (ED), General Instructions Scripts No Active Prescriptions or Reported Meds Disposition: 07 AGAINST MEDICAL ADVICE Condition: Stable Jaison Blackwell MD May 09, 2017 03:36
[2017-05-09 04:05] LABS: AUTOMATED NEUTROPHIL # 6.4 TH/MM3 (1.8-7.7); BASOPHIL # 0.1 TH/MM3 (0-0.2); BASOPHIL % 0.6 % (0.0-2.0); EOSINOPHIL # 0.3 TH/MM3 (0-0.4); HEMATOCRIT 41.9 % (39.0-51.0); HEMOGLOBIN 14.2 GM/DL (13.0-17.0); LYMPH % 22.8 % (9.0-44.0); LYMPHOCYTE # 2.3 TH/MM3 (1.0-4.8); MEAN CELL VOLUME 89.9 FL (80.0-100.0); MEAN CORPUSCULAR HEMOGLOBIN 30.5 PG (27.0-34.0); MEAN PLATELET VOLUME 10.7 FL (7.0-11.0); MONO % 8.4 % (0.0-8.0); MONOCYTE # 0.8 TH/MM3 (0-0.9); NEUT % 65.2 % (16.0-70.0); PLATELET COUNT 174 TH/MM3 (150-450); RED BLOOD COUNT 4.67 MIL/MM3 (4.50-5.90); RED CELL DISTRIBUTION WIDTH 14.1 % (11.6-17.2); WHITE BLOOD COUNT 9.9 TH/MM3 (4.0-11.0)
--- NOTE | 2017-05-09 04:17 | RADRPT ---
EXAM DATE/TIME: 05/09/2017 03:26 [facility] COMPARISON: CHEST SINGLE AP, September 04, 2016, 17:19. INDICATIONS : Chest pain. MEDICAL HISTORY : Asthma SURGICAL HISTORY : None. ENCOUNTER: Initial ACUITY: 3 days PAIN SCORE: 9/10 LOCATION: Bilateral chest FINDINGS: A single view of the chest demonstrates the lungs to be symmetrically aerated without evidence of mas s, infiltrate or effusion. The cardiomediastinal contours are unremarkable. Osseous structures are intact. CONCLUSION: No acute disease. Dashawn Valente MD on May 09, 2017 at 4:14 Board Certified Radiologist. This report was verified electronically.
[2017-05-09 04:26] LABS: ALBUMIN 3.9 GM/DL (3.4-5.0); AST (GOT) 12 U/L (15-37); BICARBONATE 25.8 MEQ/L (21.0-32.0); BLOOD UREA NITROGEN 5 MG/DL (7-18); CALCIUM 9.2 MG/DL (8.5-10.1); CHLORIDE 104 MEQ/L (98-107); CREATININE 0.92 MG/DL (0.60-1.30); GLOMERULAR FILTRATION RATE 124 ML/MIN (>89); GLUCOSE,RANDOM 88 MG/DL (74-106); SODIUM (NA) 139 MEQ/L (136-145)
[2017-05-09 04:30] LABS: ALKALINE PHOSPHATASE 63 U/L (45-117); ALT (GPT) 7 U/L (12-78); TOTAL BILIRUBIN ADULT 0.9 MG/DL (0.2-1.0); TROPONIN I LESS THAN 0.02 NG/ML (0.02-0.05)
--- NOTE | 2017-05-09 20:11 | EKG ---
Date Performed: 05/09/2017 Time Performed: 03:07:12 PTAGE: 22 years EKG: SINUS BRADYCARDIA ST DEVIATION AND MARKED T-WAVE ABNORMALITY, CONSIDER ANTERIOR ISCHEMIA AB NORMAL ECG Since the PREVIOUS TRACING , no significant change noted PREVIOUS TRACIN09/04/2016 17.06.53 DOCTOR: Cory Evangelista Interpretating Date/Time 05/09/2017 20:09:05
== END 2017-05-09 07:16 | disposition left against medical advice (07) ==
LOC: NEPE 02:23
DX: R07.9 Chest pain, unspecified (principal); R94.31 Abnormal electrocardiogram [ECG] [EKG]; Z53.20 Procedure and treatment not carried out because of patient's decision for unspecified reasons; J45.909 Unspecified asthma, uncomplicated; F17.210 Nicotine dependence, cigarettes, uncomplicated
CPT/HCPCS: 71045; 80053; 82550; 82552; 83690; 84484; 85025; 93005